=== PATIENT | female | born 1980 | race Caucasian/White ===

== ENCOUNTER → 2023-11-13 11:14 | Outpatient (REF) | payer OTHER, SELFPAY | LOC: DHCBC HW 11:14 | PROVIDERS: ATTENDING PHYSICIAN Internal Medicine Cardiovascular Disease; FAMILY PHYSICIAN Nurse Practitioner | DX: I27.21 Secondary pulmonary arterial hypertension (principal); I27.20 Pulmonary hypertension, unspecified; R06.02 Shortness of breath | CPT/HCPCS: 93306 ==

== ENCOUNTER 2023-11-19 20:24 | Emergency (ER) | payer OTHER, SELFPAY ==
[2023-11-19 20:26] VITALS: BP 115/79
[2023-11-19 20:52] LABS: Hematocrit 35.2 % (37.0-47.0); Hemoglobin 12.5 g/dL (12.0-16.0); Mean Corp Hgb Conc. 35.5 g/dL (33.0-37.0); Mean Corpuscular Hgb 33.4 pg (27.0-31.0); Mean Corpuscular Volume 94.1 fL (81.0-99.0); Mean Platelet Volume 9.5 fL (7.4-10.4); Platelet Count 265 10^3/uL (130-400); Red Blood Cell Count 3.74 10^6/uL (4.20-5.40); Red Cell Dist. Width 12.2 % (11.5-14.5); White Blood Cell Count 5.5 10^3/uL (4.8-10.8)
[2023-11-19 21:11] LABS: COVID-19 Antigen Negative (Negative)
[2023-11-19 21:23] VITALS: BP 102/62
[2023-11-19 21:30] LABS: Blood Urea Nitrogen 15 mg/dl (7-17); Calcium 9.1 mg/dl (8.4-10.2); Carbon Dioxide 22 mmol/L (22-30); Chloride 111 mmol/L (98-107); Glucose 87 mg/dl (70-99); Sodium 138 mmol/L (135-145); eGFR > 60.00
[2023-11-19 22:00] VITALS: BP 111/79
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
== END 2023-11-20 00:15 | disposition home or self-care (01) ==
LOC: EMR 20:24
PROVIDERS: Emergency Medicine; EMERGENCY PHYSICIAN Emergency Medicine; FAMILY PHYSICIAN Nurse Practitioner
DX: S09.90XA Unspecified injury of head, initial encounter (principal); W22.8XXA Striking against or struck by other objects, initial encounter; Z11.52 Encounter for screening for COVID-19; Z87.891 Personal history of nicotine dependence
CPT/HCPCS: 99285; 70450; 80048; 85027; 87502; 87811; 93005

== ENCOUNTER 2024-04-02 19:46 | Emergency (ER) | payer OTHER, SELFPAY ==
[2024-04-02 19:49] VITALS: BP 128/82
[2024-04-02 20:09] LABS: % Basophils 0.6 % (0-2); % Immature Granulocytes 0.2 % (0-0.5); % Lymphocytes 26.6 % (20.5-51.1); % Monocytes 6.1 % (1.7-9.3); % Neutrophils 64.5 % (42.2-75.2); Absolute Eosinophils 0.1 10^3/uL (0-0.7); Absolute Lymphocytes 1.7 10^3/uL (1.2-3.4); Absolute Monocytes 0.4 10^3/uL (0.1-0.6); Absolute Neutrophils 4.1 10^3/uL (1.4-6.5); Hematocrit 35.8 % (37.0-47.0); Hemoglobin 12.9 g/dL (12.0-16.0); Mean Corpuscular Hgb 34.2 pg (27.0-31.0); Mean Platelet Volume 9.3 fL (7.4-10.4); Nucleated Red Blood Cells % 0 %; Platelet Count 257 10^3/uL (130-400); Red Blood Cell Count 3.77 10^6/uL (4.20-5.40); Red Cell Dist. Width 12.3 % (11.5-14.5); White Blood Cell Count 6.4 10^3/uL (4.8-10.8)
[2024-04-02 20:29] LABS: ALT (SGPT) 12 U/L (0-35); AST (SGOT) 21 U/L (14-36); Albumin 4.2 g/dl (3.5-5.0); Alkaline Phosphatase 30 U/L (38-126); Blood Urea Nitrogen 13 mg/dl (7-17); Calcium 9.5 mg/dl (8.4-10.2); Carbon Dioxide 18 mmol/L (22-30); Chloride 111 mmol/L (98-107); Glucose 88 mg/dl (70-99); Potassium 3.5 mmol/L (3.5-5.1); Sodium 139 mmol/L (135-145); Total Bilirubin 0.8 mg/dl (0.2-1.3); Total Protein 6.6 g/dl (6.3-8.2); eGFR > 60.00
[2024-04-02 20:33] VITALS: BMI 27.4
[2024-04-02 20:37] VITALS: BP 98/72
[2024-04-02 21:00] VITALS: BP 114/92
[2024-04-02 22:00] VITALS: BP 119/69
[2024-04-02 23:00] VITALS: BP 101/67
[2024-04-02] MEDS: TYLENOL 650 MG PO (23:58)
[2024-04-02] MEDS: NSS 1000 IV (23:58)
[2024-04-02] MEDS: TORADOL 15 MG IV (23:59)
[2024-04-02] MEDS: BENADRYL 25 MG IV (23:59)
[2024-04-02] MEDS: REGLAN 10 MG IV (23:59)
[2024-04-03 00:04] VITALS: BP 109/85
--- NOTE | 2024-04-03 00:27 | ED.GENMED ---
History of Present Illness
General
Chief Complaint: Fainting/Passed Out
Source: patient and spouse
Exam Limitations: none
Time Seen by Provider: 04/02/24 20:26
Nursing documentation reviewed up to this point in time: agreed with
History of Present Illness
History of Present Illness:
44-year-old female with a past medical history of pulmonary hypertension who presents to the emergency department with her for evaluation after syncopal event also complaining of a headache. Patient reports that she woke up this morning
with a headache and it has been constant throughout the day. She describes a throbbing headache which is unrelenting. She says that in the afternoon she tried to go out and do some chores�she says that she owns chickens and goats and was bending
over changing their hay when she began to feel lightheaded and ultimately passed out. was there with her and says that she had brief loss of consciousness. Fortunately she fell onto a bale of hay and did not sustain any serious injuries.
She discussed with her primary doctor who recommended she come to the emergency room to be assessed. She says she still has headache which has been persistent all day�she says she has a history of migraines which have been similar but has not had
one for years. She does report that she had some flashes of light/floaters in her vision. No photosensitivity. No neck pain or stiffness. No nausea or vomiting. She denies any loss of vision, speech issues, weakness or numbness in her
extremities. Regarding syncopal event: She denies any chest pain, palpitations, shortness of breath associated with the symptoms. She does note that she was recently diagnosed with Lyme disease and started on treatment.
Past History
Past History
ED Past Medical History: GERD and Other (IBS, scleroderma, rheumatoid arthritis, pulmonary hypertension)
ED Past Surgical History: Gynecological
Social History
Tobacco: Former smoker
Drug: None
Personal: Single
Living: with family
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
Family History
Family History: Other
Review of Systems
Review of Systems
All Other Systems: ROS reviewed and negative except as documented in HPI and ROS
Constitutional: Denies fever
Respiratory: Denies trouble breathing
Cardiac: Reports syncope; Denies chest pain or palpitations
ABD/GI: Denies abdominal pain, nausea, vomiting or diarrhea
: Denies flank pain
Musculoskeletal: Denies neck pain or back pain
Neurological: Reports headache; Denies dizzy, weakness or numbness
Phy Exam
Physical Exam
Physical Exam:
General: Awake, alert, oriented x3; no acute distress
Head: Normocephalic, atraumatic
Eyes: Conjunctiva normal, EOMI, pupils equal round and reactive to light bilaterally
Throat: Airway intact, handling secretions
Neck: Trachea midline, supple without meningismus
Lungs: Clear to auscultation bilaterally, no wheezing, rales, rhonchi
Heart: Regular rate and rhythm, no murmurs, gallops, or rubs
Abd: Soft, non distended, nontender
Neuro: Cranial nerves intact, speech fluid, motor and sensory function intact in all extremities
Skin: no rash
Extremities: No edema in extremities, equal pulses in all extremities
Scores
Heart Failure Risk
Heart Failure Risk Score: Not Applicable
Heart Score for Chest Pain Patients
STEMI patient?: Not applicable
Withdrawal Assessment of Alcohol
Withdrawal Assessment Completed?: Not applicable
Course
Orders/Labs/Results
Orders:
Orders
04/02/24 19:57
ECG [Electrocardiogram (*1)] Urgent
Reason for Study: Syncope
Cardiology Consult: Unknown
EKG- Treatment ONCE
04/02/24 20:03
Complete Blood Count/With Diff Urgent
Comprehensive Metabolic Panel Urgent
HCG, Serum Qualitative Screen Urgent
Comment: ADD ON
04/02/24 22:32
CT Head W/o Iv Contrast Urgent
Comment:
Reason For Exam: headache, syncope
04/02/24 23:47
0.9% Sodium Chloride 1000 ml [Nss] 1,000 ml IV BOLUS
Acetaminophen [Tylenol] 650 mg PO NOW STA
Diphenhydramine [Benadryl] 25 mg IV NOW STA
Ketorolac [Toradol] 15 mg IV NOW STA
Metoclopramide [Reglan] 10 mg IV NOW STA
04/03/24 00:32
Add On- LAB Urgent
Tests Added?: hcg
Abnormal Lab Results
04/02/24
20:03
RBC 3.77 L 10^6/uL
(4.20-5.40)
Hct 35.8 L %
(37.0-47.0)
MCH 34.2 H pg
(27.0-31.0)
Chloride 111 H mmol/L
(98-107)
Carbon Dioxide 18 L mmol/L
(22-30)
Alkaline Phosphatase 30 L U/L
(38-126)
04/02/24 20:03
04/02/24 20:03
Vital Signs
Initial and Last Documented VS:
Initial Vital Signs
Temp Pulse Resp BP Pulse Ox
36.7 C 77 20 128/82 96
04/02/24 19:49 04/02/24 19:49 04/02/24 19:49 04/02/24 19:49 04/02/24 19:49
Last Documented Vital Signs
Temp Pulse Resp BP Pulse Ox
36.7 C 67 16 109/85 93
04/02/24 19:49 04/03/24 00:04 04/03/24 00:04 04/03/24 00:04 04/03/24 00:30
MDM/Problems Addressed
Differential Diagnosis Includes:
Headache: Migraine, tension headache, subarachnoid hemorrhage, dehydration
Syncope: Positional/postural syncope, vasovagal, dehydration, anemia; low suspicion for subarachnoid hemorrhage as headache preceded syncope by hours, low suspicion for ectopic with no abdominal pain or tenderness
MDM/Problems Addressed:
44-year-old female presents to the emergency room for evaluation after syncopal episode has also had a headache all day. Vital signs normal. Exam as above. Will check labs including a CBC and a CMP. Check CT head. Check EKG. Will treat
symptomatically with fluids, Reglan/Benadryl, Toradol, Tylenol. Reassess after the above.
Labs reviewed: CBC unremarkable, CMP no clinically significant abnormalities. EKG shows sinus rhythm with first-degree AV block. No ectopy, no [place], no delta wave, no acute ischemic changes. Awaiting results of CT head.
CT head negative for any acute pathology. Patient feeling much better after ED treatment says her headache has improved. Vitals have been stable here on telemetry monitoring. I suspect syncope was likely positional and headache today has been
related to migraine. I had a long discussion with the patient and her who is at the bedside. I explained that my suspicion for subarachnoid hemorrhage is low, especially given that she had headache all day prior to syncope (i.e not
thunderclap) and that she has had similar headaches in the past with migraines. I explained that based on the timeline of presentation she is outside of 6 hours and so the sensitivity of CT without contrast for subarachnoid hemorrhage is a bit
lower. I explained that we cannot with certainty rule this diagnosis out based on the testing we did today but suspicion clinically is very low and certainly negative CT scan here is at least somewhat reassuring. I explained that to definitively
rule out subarachnoid hemorrhage we would need to do further testing and I offered either a CT angiogram or a lumbar puncture. Patient says that she is feeling better and does not feel that these diagnostic tests are necessary at this point and
wishes to go home. I did explain the dangers of potentially missing this diagnosis and she indicated understanding. Using shared decision making we will forego further testing and discharge home. I did advise her that if she has worsening headache
or any other concerning symptoms she should return immediately to the emergency department. She feels very comfortable with this. All questions answered.
*Radiology
Radiology exam reviewed: radiology read reviewed
*Pulse Oximetry
Patient hypoxic: no
*EKG
Interpreted by ED Provider?: Yes
Heart Rate: 64
Rate: normal
Rhythm: sinus
[place]: normal axis
Interval: first degree heart block
QRS Pattern: normal QRS
Ischemia: no ischemia
*Critical Care Note
Total Time (30-74mins, 75-104mins- exclusive of procedures): Not Applicable
Data Reviewed
Review of Other/Old Records Reveals: Labs and Records
Source: patient, records and spouse
Further Testing Considered But Not Given:
Considered CT angiogram or lumbar puncture as above
ED Attending Note
-
Portions of this chart may have been created with voice recognition software.� Occasional wrong word or��sound alike� substitutions may have occurred due to the inherent limitations of voice recognition software.
Discharge Plan
Departure
Patient Disposition: Home (Routine Discharge)
Date of Disposition: 04/03/24
Time of Disposition: 00:56
Patient with high blood pressure during this ER visit?: No
Discharge Problem:
Headache, Syncope
Instructions: Syncope (Fainting) (DC), Headache, Adult ED
Prescriptions:
No Action
oxycodone 5 mg tablet
5 mg PO Q4H PRN (Reason: pain) Qty: 10 0RF
polyethylene glycol 3350 [Gavilax] 17 gram powder in packet
17 g PO DAILY Qty: 30 0RF
Metamucil Free 3 gram/7 gram powder
2 tsp PO DAILY Qty: 822 0RF
oxycodone 5 mg tablet
5 mg PO Q6H PRN (Reason: Pain) Qty: 14 0RF
Referrals:
Lisha Geller CRNP [Family Provider] - Follow up in 1 week
Activity Restrictions/Additional Instructions:
If you feel your headache is worsening or if you begin to feel dizzy again, or certainly if you pass out again, or if you develop any new symptoms that are concerning to you please return immediately to the emergency room for reassessment.
Otherwise you can follow-up with your primary doctor as we discussed.
Thank you for visiting the Emergency Department at [facility].
1. Please schedule a follow up appointment as directed. Call first thing tomorrow morning to make an appointment.
2. If indicated, please take your medications as instructed and indicated on discharge paperwork.
3. If any of your symptoms do not improve, or persist, or become more severe within 6-12 hours, please return to the emergency department for further care.
4. Please return to the emergency department if you develop a headache, neck pain/stiffness, fever greater than 100.4F, chest pain, shortness of breath, persistent nausea, vomiting, slurred speech, difficulty walking, numbness/tingling, weakness,
signs of infection or any other symptoms that are worrisome to you.
Please call [phone] if you have any questions.
Interventions
Interventions:
*Risk Screen - Suicide Last Done: 04/02/24 19:49
*General Assessment Last Done: 04/02/24 19:49
*Neglect/Abuse Screening Last Done: 04/02/24 19:49
ED- Fall Risk Assessment Last Done: 04/02/24 19:49
*ED COVID-19 Vaccine History Last Done: 04/02/24 19:49
ED- Cardiac Assessment Last Done: 04/02/24 20:38
ED- Neurological Assessment Last Done: 04/02/24 20:38
Discharge Date and Time
Print Language: LUX[place]BOURG[place]
[2024-04-03 01:18] LABS: HCG, Serum Qualitative Screen Negative
== END 2024-04-03 01:04 | disposition home or self-care (01) ==
LOC: EMR 19:46
PROVIDERS: Emergency Medicine; EMERGENCY PHYSICIAN Emergency Medicine; FAMILY PHYSICIAN Nurse Practitioner
DX: R51.9 Headache, unspecified (principal); R55 Syncope and collapse; I27.20 Pulmonary hypertension, unspecified; K21.9 Gastro-esophageal reflux disease without esophagitis; K58.9 Irritable bowel syndrome, unspecified; M06.9 Rheumatoid arthritis, unspecified; Z87.891 Personal history of nicotine dependence
CPT/HCPCS: 99284; 96374; 96375; 70450; 80053; 84703; 85025; 93005

== ENCOUNTER 2024-06-27 10:52 | Emergency (ER) | payer OTHER, SELFPAY ==
[2024-06-27 11:01] VITALS: BP 131/73
--- NOTE | 2024-06-27 11:11 | ED.GENMED ---
History of Present Illness
General
Chief Complaint: Breathing Problem
Source: patient
Exam Limitations: none
Time Seen by Provider: 06/27/24 11:06
History of Present Illness
History of Present Illness:
Patient is a 44-year-old female with past medical history scleroderma pulmonary hypertension presents to the ER for evaluation. She started with COVID symptoms yesterday headache body aches cough and tested positive. Today however she became short
of breath which is what prompted her to come to the ER. She initially was diagnosed with pulmonary hypertension by Dr. Salcedo but is followed at [facility]. She is treated with tadalafil and Opsumit.
Past History
Past History
ED Past Medical History: GERD and Other (IBS, scleroderma, rheumatoid arthritis, pulmonary hypertension)
ED Past Surgical History: Gynecological
Social History
Tobacco: Former smoker
Drug: None
Personal: Single
Living: with family
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
Family History
Family History: Other
Review of Systems
Review of Systems
Allergies reviewed?: Yes
All Other Systems: ROS reviewed and negative except as documented in HPI and ROS
Constitutional: Reports no symptoms; Denies fever
Respiratory: Reports cough and trouble breathing
Cardiac: Reports no symptoms
ABD/GI: Reports no symptoms
Musculoskeletal: Reports other (body aches; denies lower extremity swelling)
Skin: Reports no symptoms
Neurological: Reports headache
Psychiatric: Reports no symptoms
Phy Exam
General Physical Exam
General Presentation: no apparent distress
General age: appears stated age
General Skin: warm and dry
General Habitus: normal
General Mental: alert
Cardiovascular Exam
Cardiovascular Exam: regular rate/rhythm, no murmur and normal peripheral pulses
Pulmonary Exam
Pulmonary Exam: lungs clear and no respiratory distress
Neurological Exam
Neurological Exam: alert and oriented x3
Musculoskeletal Exam
Musculoskeletal Exam: full ROM and other (No lower extremity swelling)
Skin Exam
Skin Exam: normal color and warm/dry
Psychiatric Exam
Psychiatric Exam: normal mood/affect
Course
Orders/Labs/Results
Orders:
Orders
06/27/24 11:27
Cardiac Monitoring- Treatment ONCE
IV Insert/Care/Rem.- Treatment PRN
Chest [CR Chest - 2 Views ] Urgent
Comment:
Reason For Exam: sob hx of pulm htn and covid
06/27/24 11:28
Electrocardiogram (*1) Stat
Reason for Study: Abdominal Pain
EKG- Treatment ONCE
06/27/24 12:36
Complete Blood Count/With Diff Urgent
Comprehensive Metabolic Panel Urgent
Abnormal Lab Results
06/27/24
12:36
WBC 3.1 L 10^3/uL
(4.8-10.8)
RBC 3.52 L 10^6/uL
(4.20-5.40)
Hgb 11.9 L g/dL
(12.0-16.0)
Hct 34.0 L %
(37.0-47.0)
MCH 33.8 H pg
(27.0-31.0)
Absolute Lymphs (auto) 0.7 L 10^3/uL
(1.2-3.4)
Monocytes % 11.1 H %
(1.7-9.3)
Chloride 111 H mmol/L
(98-107)
Alkaline Phosphatase 29 L U/L
(38-126)
Total Protein 6.0 L g/dl
(6.3-8.2)
06/27/24 12:36
06/27/24 12:36
Vital Signs
Initial and Last Documented VS:
Initial Vital Signs
Temp Pulse Resp BP Pulse Ox
98 F 55 22 131/73 96
06/27/24 11:01 06/27/24 11:01 06/27/24 11:01 06/27/24 11:01 06/27/24 11:01
Last Documented Vital Signs
Temp Pulse Resp BP Pulse Ox
98 F 56 18 125/78 97
06/27/24 11:01 06/27/24 14:00 06/27/24 14:00 06/27/24 14:00 06/27/24 14:00
Solution Advisor consulted with Physician
Solution Advisor consulted with physician?: Yes
Name of Physician Consulted: wilmer
MDM/Problems Addressed
Differential Diagnosis Includes:
Not limited to COVID, pneumonia
MDM/Problems Addressed:
Patient is a 54-year-old female with history of scleroderma and pulmonary hypertension presents to the ER for evaluation. Patient tested positive for COVID yesterday felt short of breath is what prompted patient to come to the ER.. Patient
presents awake alert no acute distress her lungs are clear she is not she is nontachycardic well-appearing. Symptoms not PE. No acute findings on chest x-ray. No acute findings and EKG unremarkable labs. Patient ambulated and is in remains
looking well. Patient took ibuprofen prior to arrival she complains of mild headache but wants to take Tylenol at home. Case reviewed ED physician stable for discharge home with outpatient follow-up
*Radiology
Radiology exam reviewed: radiology read reviewed
*Pulse Oximetry
Patient hypoxic: no
*EKG
Interpreted by ED Provider?: Yes
Rate: bradycardiac
Rhythm: sinus
Ischemia: no ischemia
*Critical Care Note
Total Time (30-74mins, 75-104mins- exclusive of procedures): Not Applicable
ED Attending Note
-
Portions of this chart may have been created with voice recognition software.� Occasional wrong word or��sound alike� substitutions may have occurred due to the inherent limitations of voice recognition software.
Discharge Plan
Departure
Patient Disposition: Home (Routine Discharge)
Date of Disposition: 06/27/24
Time of Disposition: 14:28
Patient with high blood pressure during this ER visit?: No
Condition: Fair
Covid-19: Not Applicable
Discharge Problem:
COVID-19
Instructions: COVID-19 ED
Prescriptions:
No Action
oxycodone 5 mg tablet
5 mg PO Q4H PRN (Reason: pain) Qty: 10 0RF
polyethylene glycol 3350 [Gavilax] 17 gram powder in packet
17 g PO DAILY Qty: 30 0RF
Metamucil Free 3 gram/7 gram powder
2 tsp PO DAILY Qty: 822 0RF
oxycodone 5 mg tablet
5 mg PO Q6H PRN (Reason: Pain) Qty: 14 0RF
Referrals:
Lisha Geller CRNP [Family Provider] -
Activity Restrictions/Additional Instructions:
As discussed be sure to get plenty of rest and stay well-hydrated .alternate between Tylenol and ibuprofen. Follow-up if worsening of symptoms . Follow-up with your family doctor in the next several days for reevaluation.
Interventions
Interventions:
*Risk Screen - Suicide Last Done: 06/27/24 11:01
*Neglect/Abuse Screening Last Done: 06/27/24 11:01
Discharge Date and Time
Print Language: L[place]
[2024-06-27 12:00] VITALS: BP 94/61
[2024-06-27 13:04] LABS: % Basophils 0.3 % (0-2); % Immature Granulocytes 0.3 % (0-0.5); % Lymphocytes 23.6 % (20.5-51.1); % Monocytes 11.1 % (1.7-9.3); % Neutrophils 63.7 % (42.2-75.2); Absolute Lymphocytes 0.7 10^3/uL (1.2-3.4); Absolute Monocytes 0.4 10^3/uL (0.1-0.6); Hemoglobin 11.9 g/dL (12.0-16.0); Mean Corpuscular Hgb 33.8 pg (27.0-31.0); Mean Corpuscular Volume 96.6 fL (81.0-99.0); Mean Platelet Volume 9.9 fL (7.4-10.4); Nucleated Red Blood Cells % 0 %; Platelet Count 178 10^3/uL (130-400); Red Blood Cell Count 3.52 10^6/uL (4.20-5.40); Red Cell Dist. Width 12.3 % (11.5-14.5); White Blood Cell Count 3.1 10^3/uL (4.8-10.8)
[2024-06-27 13:10] LABS: ALT (SGPT) 15 U/L (0-35); AST (SGOT) 26 U/L (14-36); Albumin 3.7 g/dl (3.5-5.0); Alkaline Phosphatase 29 U/L (38-126); Blood Urea Nitrogen 8 mg/dl (7-17); Calcium 8.8 mg/dl (8.4-10.2); Carbon Dioxide 22 mmol/L (22-30); Chloride 111 mmol/L (98-107); Glucose 94 mg/dl (70-99); Potassium 4.4 mmol/L (3.5-5.1); Sodium 140 mmol/L (135-145); Total Bilirubin 0.2 mg/dl (0.2-1.3); eGFR > 60.00
[2024-06-27 14:00] VITALS: BP 125/78
[2024-06-27 14:35] VITALS: BP 143/77
== END 2024-06-27 14:35 | disposition home or self-care (01) ==
LOC: EMR 10:52
PROVIDERS: Nurse Practitioner; EMERGENCY PHYSICIAN Emergency Medicine; FAMILY PHYSICIAN Nurse Practitioner
DX: U07.1 COVID-19 (principal); Z87.891 Personal history of nicotine dependence; I27.20 Pulmonary hypertension, unspecified
CPT/HCPCS: 99285; 71046; 80053; 85025; 93005

== ENCOUNTER 2025-03-23 03:30 | Day surgery (SDC) | payer OTHER, SELFPAY ==
[2025-03-22 18:59] VITALS: BP 138/73
[2025-03-22 19:20] LABS: Hematocrit 38.8 % (37.0-47.0); Hemoglobin 13.5 g/dL (12.0-16.0); Mean Corp Hgb Conc. 34.8 g/dL (33.0-37.0); Mean Corpuscular Volume 96.5 fL (81.0-99.0); Nucleated Red Blood Cells % 0 %; Platelet Count 231 10^3/uL (130-400); Red Cell Dist. Width 12.9 % (11.5-14.5)
[2025-03-22 19:37] LABS: HCG, Serum Qualitative Screen Negative
[2025-03-22 19:38] LABS: ALT (SGPT) 14 U/L (0-35); AST (SGOT) 25 U/L (14-36); Albumin 4.2 g/dl (3.5-5.0); Alkaline Phosphatase 26 U/L (38-126); Blood Urea Nitrogen 14 mg/dl (7-17); Calcium 9.4 mg/dl (8.4-10.2); Carbon Dioxide 22 mmol/L (22-30); Chloride 111 mmol/L (98-107); Glucose 104 mg/dl (70-99); Lipase 139 U/L (23-300); Potassium 4.4 mmol/L (3.5-5.1); Sodium 137 mmol/L (135-145); Total Protein 6.9 g/dl (6.3-8.2); eGFR > 60.00
[2025-03-22 19:48] LABS: Troponin I < 0.012 ng/ml
[2025-03-22 21:29] VITALS: BP 142/77
[2025-03-22 22:00] VITALS: BP 122/73
[2025-03-22 22:04] VITALS: BMI 26.2
[2025-03-22 22:06] VITALS: BP 122/73
[2025-03-22] MEDS: TORADOL 15 MG IV (22:44)
[2025-03-22] MEDS: ZOFRAN 4 MG IV (22:46)
--- NOTE | 2025-03-22 23:10 | ED.GENMED ---
History of Present Illness
General
Chief Complaint: Abdominal Pain
Time Seen by Provider: 03/22/25 21:58
History of Present Illness
History of Present Illness:
45-year-old female with history of scleroderma presenting for upper abdominal pain. Patient report that she woke up with the symptoms this morning. She has had nausea without vomiting. Does note episode of diarrhea. Pain is concentrated to the
right upper quad. Does note issues with her gallbladder in , however never required removal. Pain radiates to her back and to her chest. Notes fever without chills. Denies additional acute medical complaint
Past History
Past History
ED Past Medical History: GERD and Other (IBS, scleroderma, rheumatoid arthritis, pulmonary hypertension)
ED Past Surgical History: Gynecological
Social History
Tobacco: Former smoker
Drug: None
Personal: Single
Living: with family
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
Family History
Family History: Other
Phy Exam
Physical Exam
Physical Exam:
General: Well-appearing, no clinical signs of dehydration, nontoxic and in no acute distress
HEENT: protecting airway
Neck: appears supple
CV: Normal heart rate, regular rhythm
Resp: No accessory muscle use, no increased work of breathing, lungs clear to auscultation bilaterally
Abd: Soft and non-distended, focal right upper quadrant tenderness with guarding, no rebound
Extremities: No deformities, no swelling
Neuro: alert, no focal neurologic deficit
: deferred
Rectal: deferred
Psych: Normal affect
Skin: Intact
Course
Orders/Labs/Results
Orders:
Orders
03/22/25 19:03
Electrocardiogram (*1) Urgent
Reason for Study: Chest Pain
03/22/25 19:04
EKG- Treatment ONCE
Test Result ONCE
03/22/25 19:14
Complete Blood Count/With Diff Urgent
Comprehensive Metabolic Panel Urgent
HCG, Serum Qualitative Screen Urgent
Lipase Urgent
Troponin I Urgent
03/22/25 22:36
Ketorolac [Toradol] 15 mg IV NOW STA
Ondansetron Injectable [Zofran] 4 mg IV NOW STA
US Abdomen Complete/Upper Urgent
Comment:
Reason For Exam: suspect cholecystitis
03/23/25 00:08
CT Abd/pelvis W Iv Cont Urgent
Comment:
Reason For Exam: upper abd pain
03/23/25 00:13
Morphine Sulfate 4 mg IV NOW STA
03/23/25 00:16
0.9% Sodium Chloride 1000 ml [Nss] 1,000 ml IV BOLUS
Abnormal Lab Results
03/22/25
19:14
RBC 4.02 L 10^6/uL
(4.20-5.40)
MCH 33.6 H pg
(27.0-31.0)
Absolute Lymphs (auto) 0.7 L 10^3/uL
(1.2-3.4)
Neutrophils % 77.8 H %
(42.2-75.2)
Lymphocytes % 13.8 L %
(20.5-51.1)
Chloride 111 H mmol/L
(98-107)
Glucose 104 H mg/dl
(70-99)
Total Bilirubin 1.5 H mg/dl
(0.2-1.3)
Alkaline Phosphatase 26 L U/L
(38-126)
03/22/25 19:14
03/22/25 19:14
Vital Signs
Initial and Last Documented VS:
Initial Vital Signs
Temp Pulse Resp BP Pulse Ox
98.2 F 67 18 138/73 95
03/22/25 18:59 03/22/25 18:59 03/22/25 18:59 03/22/25 18:59 03/22/25 18:59
Last Documented Vital Signs
Temp Pulse Resp BP Pulse Ox
98.2 F 52 16 110/69 93
03/22/25 18:59 03/23/25 02:30 03/23/25 02:30 03/23/25 02:00 03/23/25 02:30
MDM/Problems Addressed
MDM/Problems Addressed:
45-year-old female presenting for right upper quadrant abdominal pain. Vital signs on arrival are normal.
On exam, patient is in no acute distress, however does appear uncomfortable secondary to pain. Focal tenderness to the right upper quadrant with a strong suspicion for cholelithiasis versus cholecystitis, particularly given history of gallbladder
issues in the past. For this reason will obtain laboratory analysis and start workup with ultrasound imaging.
00:05 - Ultrasound without acute abnormality. Given patient's pain, we will proceed with CT imaging
02:50 -CT shows concern for uncomplicated appendicitis. Surgery made aware. Plan for admission with surgical management. Zosyn ordered for antibiotic coverage, per surgery recommendations.
*Pulse Oximetry
SaO2: 96
Oxygen Mode of Delivery: Room air
Patient hypoxic: no
*EKG
Interpreted by ED Provider?: Yes
EKG Intrepretation Date: 03/22/25
EKG Intrepretation Time: 23:12
Interpretation: normal
Heart Rate: 60
Rate: normal
Rhythm: sinus
[place]: right axis deviation
Interval: normal interval
QRS Pattern: normal QRS
Ischemia: no ischemia
*Critical Care Note
Total Time (30-74mins, 75-104mins- exclusive of procedures): Not Applicable
ED Attending Note
-
Portions of this chart may have been created with voice recognition software.� Occasional wrong word or��sound alike� substitutions may have occurred due to the inherent limitations of voice recognition software.
Discharge Plan
Departure
Prescriptions:
No Action
oxycodone 5 mg tablet
5 mg PO Q4H PRN (Reason: pain) Qty: 10 0RF
polyethylene glycol 3350 [Gavilax] 17 gram powder in packet
17 g PO DAILY Qty: 30 0RF
Metamucil Free (with sugar) 3 gram/7 gram powder
2 tsp PO DAILY Qty: 822 0RF
oxycodone 5 mg tablet
5 mg PO Q6H PRN (Reason: Pain) Qty: 14 0RF
Referrals:
Lisha Geller CRNP [Family Provider, Family Practice]
Interventions
Interventions:
*Risk Screen - Suicide Last Done: 03/22/25 18:59
*General Assessment Last Done: 03/22/25 18:59
*Neglect/Abuse Screening Last Done: 03/22/25 18:59
*ED- Fall Risk Assessment Last Done: 03/22/25 22:05
*ED COVID-19 Vaccine History Last Done: 03/22/25 22:05
YL-Vxqxgq-Ytckwspdrq Assessment Last Done: 03/22/25 22:07
Discharge Date and Time
Print Language: SOUTH SUDANESE
[2025-03-22 23:25] VITALS: BP 105/52
[2025-03-23] VITALS (18 sets, daily range): BP systolic 97–119; BP diastolic 55–99; BMI 26.3
[2025-03-23] MEDS: NSS 1000 IV (00:19)
[2025-03-23] MEDS: MORPHINE SULFATE 4 MG IV ×4 (00:20→09:18)
[2025-03-23] MEDS: ZOSYN 100 IV (03:10)
[2025-03-23] MEDS: FLUSH (NSS) 1 FLUSH IV (03:37)
--- NOTE | 2025-03-23 04:03 | HPS.HSE ---
Addendum entered and electronically signed by Ronn Foley MD 03/23/25 07:53:
Patient is a 45 yo F with a PMH scleroderma c/b pulmonary HTN, endometriosis s/p laparoscopic excision, and s/p tubal ligation who presents with abdominal discomfort. Currently she states that her abdominal discomfort is mostly in her lower
abdomen, though she states that her symptoms began as upper abdominal discomfort beginning yesterday. Prior to this she states that she w yeah as doing well. She does have intermittent episodes of discomfort and fullness sensation at baseline.
Associated chills and severe nausea, but no episodes of vomiting or fevers. She does report looser nonbloody stools. No clear association with fatty food intake. She denies any jaundice or dark urine. Ultrasound of the abdomen was ordered for
concern of possible cholecystitis which was read as normal. Because of that a CT scan was obtained which demonstrated mild acute appendicitis without any perforation or abscess formation.
Gen: NAD, uncomfortable
Abd: soft, tender in upper mid abdomen and RLQ, mild distension, no rebound, voluntary guarding
Labs and CT scan were reviewed. Final read on CT scan and US pending.
Patient is a 45 yo F p/w likely acute appendicitis
Clinical presentation is somewhat unusual given her upper abdominal discomfort, however, her symptoms are localizing to the past 12 hours to the RLQ. Her CT scan does demonstrate a dilated and mildly inflamed appendix without perforation or abscess
formation. Final read from Radiology on above-noted imaging pending.
The natural history and pathophysiology of appendicitis was discussed. Anatomy was reviewed. Options for management including medical management with antibiotics versus surgical management with appendectomy were considered and discussed. Pros and
cons of both approaches was discussed. Specifically, we discussed failure of medical management and future episodes of appendicitis versus surgical risks.
Plan for a laparoscopic appendectomy. The procedure itself, as well as the risks, benefits, and alternatives was discussed. Specifically, we discussed the risks of bleeding, infection, injury to surrounding structures (bowel), staple line leak,
and need for open procedure. Typical postprocedural recovery including pain management and activity restrictions were discussed. All questions answered. Consent signed.
-- Laparoscopic appendectomy
-- NPO, IVF
-- Abx: Zosyn
-- Pain control: Tylenol and IV Morphine
Original Note:
Family Physician
-
Family Physician: Lisha Geller
Chief Complaint
-
abd pain
History of Present Illness
45-year-old female with history of scleroderma, pulmonary HTN (on opsumit) presenting for upper abdominal pain. Patient reports that she woke up with the symptoms this morning. Initially started with diarrhea and then pain started in ruq with
bloating. She did feel like stool was foul smelling. She has had nausea without vomiting. Pain is concentrated to the right upper quad. Does note issues with her gallbladder in , however never required removal. Pain radiates to her back
and to her chest. With increased pain she has trouble taking deep breaths. Notes chills. Denies additional acute medical complaint
Based on symptomology, pt was ordered abd Us for concern of acute cholecystitis, but that proved to be normal. Decision then made to get ct abd.
CT abd: consistent with acute uncomplicated acute appendicitis. Dilated appendix up to 12mm.
WBC normal Neutrophils 77.8
Received zosyn, toradol and morphine in ED- which helped pain
Medical History
Past Medical History
Past Medical History: Reports Other (scleroderma, pulmonary HTN (2020), endometriosis)
Past Surgical History: Reports Cardiac (many RHC over the years), Gynocological (multiple surgeries for endometriosis) and Other (wisdom teeth)
Social History
Tobacco: Non-smoker
Alcohol: Occasional
Drug: None
Personal:
Living: With Family
Family History
Family History: Not pertinent
Allergies / Home Medications
Allergies reflects when Allergies were last updated in [facility].
Home Medications with original date entered in [facility]
Allergy/Medication List:
Allergies
Allergy/AdvReac Type Severity Reaction Status Date / Time
propoxyphene HCl (From Allergy Anaphylaxis Verified 03/22/25 22:04
[place])
Home Medications
opsumt 10mg po daily (pulmonary HTN)
Review of Systems
-
History Source: Patient
A 12 point ROS was completed and negative except as noted: Yes
Constitutional: Reports See HPI and Chills
EENT: Reports No Symptoms
Respiratory: Reports Trouble Breathing (trouble taking full breaths when pain severe)
Cardiac: Reports No Symptoms
Abdomen/GI: Reports Abdominal Pain (RUQ pain mostly. And lower abd feels crampy), Nausea, Diarrhea (yesterday morning), Pain and Other (bloating)
: Reports No Symptoms
Musculoskeletal: Reports No Symptoms
Skin: Reports No Symptoms
Neurological: Reports No Symptoms
Endocrine: Reports No Symptoms
Hematologic/Lymphatic: Reports No Symptoms
Psych: Reports No Symptoms
Physical Exam
Vital Signs
Vital Signs
Temp Pulse Resp BP Pulse Ox
98.2 F 54 13 119/75 96
03/22/25 18:59 03/23/25 04:00 03/23/25 04:00 03/23/25 03:00 03/23/25 04:00
Physical Exam
General: Well Developed, Well Nourished, Appears in Distress and Pain
HEENT: NormoCephalic, Anicteric and Moist mucous membranes
Respiratory: Clear
Cardiac: S1/S2 and Regular Rhythm
Breast: Deferred by me
GI: Soft, Normal Bowel Sounds, Tender (low abd tenderness and RUQ tenderness) and Distended (softly distended); No Non Tender or Non Distended
Rectal: Deferred by Provider
Genito-urinary: Deferred by me
Musculoskeletal: No Clubbing and No Cyanosis
Skin: Warm and Dry
Neuro: Awake, Oriented, AO x 3 and No Motor Deficits
Hematologic/Lymphatic: No Lymphadenopathy
Psych: Calm
Laboratory Results
-
03/22/25 19:14
03/22/25 19:14
Laboratory Results
Total Bilirubin 1.5 mg/dl (0.2-1.3) H 03/22/25 19:14
AST 25 U/L (14-36) 03/22/25 19:14
ALT 14 U/L (0-35) 03/22/25 19:14
Alkaline Phosphatase 26 U/L (38-126) L 03/22/25 19:14
Troponin I < 0.012 ng/ml 03/22/25 19:14
Lipase 139 U/L (23-300) 03/22/25 19:14
Data Reviewed
-
CT Scan: Report Reviewed by me and Discussed with Physician
Ultrasound: Report Reviewed by me and Discussed with Physician
Lab Data: Labs Reviewed by me
Impression/Plan
-
IMPRESSION:
acute uncomplicated appendicitis
PLAN:
Admit to service of Dr Foley
med surg obs
#acute uncomplicated appendicitis
-NPO x meds
-IVF for gentle hydration
-Pain control: tylenol, toradol, morphine prn
-cont zosyn
-zofran prn
-start Incentive fidel
#pulmonary HTN
-cont Opsumit (may need to bring from home if non-formulary)
DVT proph: scd
Discussed with at bedside
Full code
--- NOTE | 2025-03-23 04:40 | EDRN ---
Patient taken to room 2120 on stretcher by organic section technical lead.
[2025-03-23] MEDS: NORMOSOL-R/PLASMALYTE-A 1000 IV (04:57)
--- NOTE | 2025-03-23 05:44 | TRANSFER ---
Received pt from ED at 0433 dx of uncomplicated acute appendicitis, pt reported pain 4/10 to RUQ - received morphine about an hour before arriving. Discussed plans w pt, all questions answered. Pt's mother arrived at bedside -0515. Call kiran within
reach, bed in lowest position. Care ongoing.
[2025-03-23 06:10] LABS: Hematocrit 38.3 % (37.0-47.0); Hemoglobin 13.2 g/dL (12.0-16.0); Mean Corp Hgb Conc. 34.5 g/dL (33.0-37.0); Mean Corpuscular Volume 97.2 fL (81.0-99.0); Nucleated Red Blood Cells % 0 %; Platelet Count 233 10^3/uL (130-400); Red Cell Dist. Width 12.9 % (11.5-14.5)
[2025-03-23 06:36] LABS: ALT (SGPT) 14 U/L (0-35); AST (SGOT) 24 U/L (14-36); Albumin 4.3 g/dl (3.5-5.0); Alkaline Phosphatase 25 U/L (38-126); Blood Urea Nitrogen 11 mg/dl (7-17); Calcium 8.7 mg/dl (8.4-10.2); Carbon Dioxide 19 mmol/L (22-30); Chloride 111 mmol/L (98-107); Estimated Creatinine Clearance 71 ml/min; Glucose 93 mg/dl (70-99); Potassium 4.0 mmol/L (3.5-5.1); Sodium 139 mmol/L (135-145); Total Protein 7.0 g/dl (6.3-8.2); eGFR > 60.00
[2025-03-23] MEDS: ZOSYN 50 IV (08:55)
--- NOTE | 2025-03-23 09:41 | W.SUR.PREOP ---
Pre-Operative Surgical Note
-
I have examined this patient prior to the performance of the scheduled procedure.
The patient's condition is unchanged from the time of the current History and
Physical and the patient is able to undergo the scheduled procedure.
--- NOTE | 2025-03-23 11:07 | W.IMMPOSTOP ---
Surgical Immed Post Op Note
-
Primary Surgeon: Og
Assisting Surgeon: None
Pre-op Diagnosis: Acute appendicitis
Post-op Diagnosis: Acute appendicitis
Procedure Performed: Laparoscopic appendectomy
Anesthesia Type: General
Specimen / Cultures:
1. Appendix
Estimated Blood Loss: 3 cc
Complications: None
Operative Findings:
1. Acutely inflamed and dilated appendix, no evidence of perforation
2. Mesentery taken with [employer], base with webb load stapler
[2025-03-23] MEDS: SUBLIMAZE 50 MCG IV (11:30)
--- NOTE | 2025-03-23 13:33 | PTCARENOTE ---
Pt arrived to [facility] from PACU at 1200 s/p lap appy. 3 lap sites and 1 poke site [facility] with glue. Pt on 1L of O2 at 99%. Pt oriented to room and call kiran. Bed locked and in lowest position. Care ongoing.
[2025-03-23] MEDS: ROXICODONE 5 MG PO ×3 (13:50→23:27)
--- NOTE | 2025-03-23 14:56 | CM ---
Reviewed the chart notes and spoke with the patient and family at the bedside. Patient resides with significant other in a two story home with 10 steps to enter. The patient reports no DME or SNF in the past, but briefly had VN after of son.
The patient confirmed her pharmacy of choice is [facility] [address] [place]. CM continues to be available to patient/family and is monitoring medical plan for needs at discharge.
Plan: Discharge to home when medically stable. No needs anticipated.
[2025-03-23] MEDS: LOVENOX 40 MG SC (18:31)
[2025-03-23] MEDS: NON-FORMULARY ITEM 1 TABLET PO (20:14)
[2025-03-23] MEDS: NORMOSOL-R/PLASMALYTE-A IV (22:27)
[2025-03-24 03:18] VITALS: BP 90/54
[2025-03-24] MEDS: ROXICODONE 5 MG PO ×2 (06:29→10:46)
[2025-03-24 07:40] VITALS: BP 115/73
[2025-03-24] MEDS: TORADOL 10 MG IV (08:35)
[2025-03-24] MEDS: TYLENOL 650 MG PO (08:36)
--- NOTE | 2025-03-24 08:46 | W.PN.GS2 ---
Today's Communication / Plan
-
-- DC
Assessment / Plan
-
Patient is a 45 yo F POD#1 s/p laparoscopic appendectomy
AVSS
Recovering well. No postoperative concerns.
-- Regular diet
-- Pain control: Tylenol, Toradol, Oxycodone
-- HLIV
-- Home meds
-- DVT: Lovenox
-- DC
Subjective Data
-
Date of Service: March 24, 2025
Pain overall well-controlled. Continues to report some RUQ discomfort. No fevers or chills. No nausea or vomiting. Passing flatus.
Objective Data
-
Intake and Output
03/23/25 03/24/25 03/25/25
06:59 06:59 06:59
Intake Total 1240 / 1240 480 / 480
Balance 1240 / 1240 480 / 480
Intake:
Oral fluids 960 / 960 480 / 480
IV fluids (Total) 280 / 280
Other:
Number of approximated MODERATE 2
amounts of urine
Vital Signs
Temp Pulse Resp BP Pulse Ox
97.9 F 55 14 115/73 96
03/24/25 07:40 03/24/25 07:40 03/24/25 07:40 03/24/25 07:40 03/24/25 07:40
Lab Results
03/23/25 05:17
03/23/25 05:17
Calcium 8.7 mg/dl (8.4-10.2) 03/23/25 05:17
Total Bilirubin 1.6 mg/dl (0.2-1.3) H 03/23/25 05:17
AST 24 U/L (14-36) 03/23/25 05:17
ALT 14 U/L (0-35) 03/23/25 05:17
Alkaline Phosphatase 25 U/L (38-126) L 03/23/25 05:17
Total Protein 7.0 g/dl (6.3-8.2) 03/23/25 05:17
Albumin 4.3 g/dl (3.5-5.0) 03/23/25 05:17
Physical Exam
-
Gen: NAD
Abd: soft, mild tenderness, ND, non-peritoneal, incisions c/d/i - no erythema, ecchyomosis or drainage
Patient has a mcclendon catheter: No
Patient has a central line: No
[2025-03-24] MEDS: ZOFRAN 4 MG IV (09:43)
[2025-03-24] MEDS: NORMOSOL-R/PLASMALYTE-A IV (10:46)
[2025-03-24 11:00] VITALS: BP 102/65
== END 2025-03-24 11:48 | disposition home or self-care (01) ==
LOC: PACU 03:30
PROVIDERS: Nurse Practitioner Family; Student in an Organized Health Care Education/Training Program; ATTENDING PHYSICIAN Surgery; EMERGENCY PHYSICIAN Student in an Organized Health Care Education/Training Program; FAMILY PHYSICIAN Nurse Practitioner
DX: K35.80 Unspecified acute appendicitis (principal)
CPT/HCPCS: 44970; 88304; 74177; 76700; 80053; 83690; 84484; 84703; 85025; 93005; 96361; 96365; 96375; 99285; C1776; G0378; Q9967

== ENCOUNTER 2025-04-15 08:15 | Inpatient (IN) | payer OTHER, SELFPAY ==
[2025-04-11 21:17] VITALS: BP 116/99
[2025-04-11 21:42] LABS: Hematocrit 36.5 % (37.0-47.0); Hemoglobin 13.2 g/dL (12.0-16.0); Mean Corp Hgb Conc. 36.2 g/dL (33.0-37.0); Mean Corpuscular Volume 94.6 fL (81.0-99.0); Nucleated Red Blood Cells % 0 %; Platelet Count 276 10^3/uL (130-400); Red Cell Dist. Width 13.2 % (11.5-14.5)
[2025-04-11 21:55] LABS: HCG, Serum Qualitative Screen Negative
[2025-04-11 21:58] LABS: ALT (SGPT) < 10 U/L (0-35); AST (SGOT) 21 U/L (14-36); Albumin 4.4 g/dl (3.5-5.0); Alkaline Phosphatase 23 U/L (38-126); Blood Urea Nitrogen 8 mg/dl (7-17); Calcium 9.2 mg/dl (8.4-10.2); Carbon Dioxide 19 mmol/L (22-30); Chloride 110 mmol/L (98-107); Glucose 97 mg/dl (70-99); Lipase 206 U/L (23-300); Potassium 4.0 mmol/L (3.5-5.1); Sodium 139 mmol/L (135-145); Total Protein 7.0 g/dl (6.3-8.2); eGFR > 60.00
[2025-04-11 22:06] LABS: Troponin I < 0.012 ng/ml
--- NOTE | 2025-04-11 22:08 | ED.GENMED ---
History of Present Illness
<Iwona Shah NP - Last Filed: 04/14/25 16:23>
General
Chief Complaint: Abdominal Pain
Source: patient
Exam Limitations: none
Time Seen by Provider: 04/11/25 22:10
Nursing documentation reviewed up to this point in time: agreed with
History of Present Illness
History of Present Illness:
Patient to ED with complaint of upper abd. pain. Pain started suddenly tonight. SHe is 2 weeks post appendectomy. No issues until tonight. Denies fever/chills, n/v/d. Brought to eD by family for eval,
Past History
<Iwona Shah NP - Last Filed: 04/14/25 16:23>
Past History
ED Past Medical History: GERD and Other (IBS, scleroderma, rheumatoid arthritis, pulmonary hypertension)
ED Past Surgical History: Gynecological
Social History
Tobacco: Former smoker
Drug: None
Personal: Single
Living: with family
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
Family History
Family History: Other
Review of Systems
<Iwona Shah NP - Last Filed: 04/14/25 16:23>
Review of Systems
Allergies reviewed?: Yes
All Other Systems: ROS reviewed and negative except as documented in HPI and ROS
Constitutional: Reports no symptoms
EENT: Reports no symptoms
Respiratory: Reports no symptoms
Cardiac: Reports no symptoms
ABD/GI: Reports abdominal pain
: Reports no symptoms
Musculoskeletal: Reports no symptoms
Skin: Reports no symptoms
Neurological: Reports no symptoms
Psychiatric: Reports no symptoms
Phy Exam
<Iwona Shah NP - Last Filed: 04/14/25 16:23>
General Physical Exam
General Presentation: moderate distress
General age: appears stated age
General Skin: warm and dry
General Habitus: normal
Cardiovascular Exam
Cardiovascular Exam: regular rate/rhythm and no edema
Pulmonary Exam
Pulmonary Exam: lungs clear and no respiratory distress
Gastrointestinal Exam
Gastrointestinal Exam: soft, no organomegaly, no pulsatile mass and non distended
Palpation: left upper quadrant: Moderate tenderness, left lower quadrant: Minimal tenderness, right upper quadrant: Moderate tenderness and right lower quadrant: Minimal tenderness
Musculoskeletal Exam
Musculoskeletal Exam: full ROM
Skin Exam
Skin Exam: normal color, warm/dry and no rash
Psychiatric Exam
Psychiatric Exam: normal mood/affect
Course
<Iwona Shah DRUM HAND[employer]ER - Last Filed: 04/14/25 16:23>
Orders/Labs/Results
Orders:
Orders
04/11/25 21:19
Electrocardiogram (*1) Urgent
Reason for Study: Abdominal Pain
EKG- Treatment ONCE
04/11/25 21:20
Test Result ONCE
04/11/25 21:30
Complete Blood Count/With Diff Urgent
Comprehensive Metabolic Panel Urgent
HCG, Serum Qualitative Screen Urgent
Lipase Urgent
Troponin I Urgent
04/11/25 22:11
HYDROmorphone [Dilaudid] 0.5 mg IV NOW STA
Ondansetron Injectable [Zofran] 4 mg IV NOW STA
04/11/25 22:12
0.9% Sodium Chloride 1000 ml [Nss] 1,000 ml IV BOLUS
HYDROmorphone [Dilaudid] 0.5 mg .ROUTE .STK-MED ONE
Ondansetron Injectable [Zofran] 4 mg .ROUTE .STK-MED ONE
04/11/25 22:32
CT Abd/pelvis W Iv Cont Urgent
Comment:
Reason For Exam: abdominal pain s/p appendectomy
04/11/25 22:54
Urinalysis Reflex To Culture Urgent
Date Specimen was Collected: 04/11/25
Time Specimen was Collected: 22:48
04/12/25 00:23
HYDROmorphone [Dilaudid] 0.5 mg IV NOW STA
04/12/25 00:30
Mag Hydrox/Al Hydrox/Simeth [Maalox] 30 ml Phenobarb/Hyoscy/Atropine/Scop [] 10 ml Viscous Lidocaine 2% [Xylocaine Viscous Cup] 10 ml PO NOW
Pantoprazole [Protonix IV] 40 mg IV NOW STA
04/12/25 00:41
Mag Hydrox/Al Hydrox/Simeth [Maalox] 30 ml .ROUTE .STK-MED ONE
Phenobarb/Hyoscy/Atropine/Scop [] 10 ml .ROUTE .STK-MED ONE
04/12/25 00:42
Viscous Lidocaine 2% [Xylocaine Viscous Cup] 15 ml .ROUTE .STK-MED ONE
04/12/25 00:48
US Abdomen Limited Urgent
Comment:
Reason For Exam: RUQ pain
04/12/25 00:50
D-Dimer Urgent
04/12/25 01:59
Sucralfate [Carafate] 1 gram PO NOW STA
04/12/25 04:49
HYDROmorphone [Dilaudid] 0.5 mg .ROUTE .STK-MED ONE
Ondansetron Injectable [Zofran] 4 mg .ROUTE .STK-MED ONE
04/12/25 04:50
Ondansetron Injectable [Zofran] 4 mg IV NOW STA
04/12/25 04:51
HYDROmorphone [Dilaudid] 0.5 mg IV NOW STA
04/12/25 05:11
CT Chest Angio W/wo Iv Contras Stat
Comment:
Reason For Exam: syncope chest pain, eval dissection, central pe
04/12/25 05:17
Admit/Transfer Patient As Directed
Co-Sign Provider:
Level of Care: Observation services
Assign to:: Telemetry
Physician / Group: [facility]
Diagnosis: syncope, abdominal pain
Reason for Telemetry: Syncope
Date to Stop Telemetry: 04/14/25
Time to Stop Telemetry: 11:00
PRN Pain Medication Management As Directed
May give lesser potent ordered pain med per pt: Yes
preference::
Protocol:: Medication orders for pain may be administered in a
manner that supports deferring to patient preference
when the pt is:
- Requesting an ordered lesser potent pain medication.
Least to most potent pain medications are defined
as: acetaminophen < NSAID < tramadol < opioids
(morphine, oxycodone, hydromorphone).
- Requesting a lesser dose of the same medication IF
ORDERED.
- Requesting a less intrusive route of administration
if both routes are prescribed by the provider (PO <
IV).
04/12/25 05:18
Code Status As Directed
Resuscitation Status: Full Code
04/12/25 07:04
Electrocardiogram (*1) Q6H
Reason for Study: Chest Pain
Comment: at admission and Q3H for total of 3, to be done with each troponin
Acetaminophen [Tylenol] 650 mg PO Q4HPRN PRN
Dextrose 5%/0.45%Sodchl 1000ML [D5/0.45%NaCl] 1,000 ml IV 80 mls/hr
Mag/Al/Simethicone [Maalox Plus] 1 tablet PO Q4HPRN PRN
Oxycodone [Roxicodone] 5 mg PO Q4HPRN PRN
04/12/25 07:04
Echo 2D MMode Color/Doppler Routine
Reason for Study: syncope
Activity As Directed
Activity Level: With Assistance
INT (Intravenous Needle Therapy) As Directed
Comment: maintain peripheral IV access
Intake/ Output As Directed
Frequency: Per unit guidelines
Orthostatic Vital Signs As Directed
Orthostatic VS Frequency: Daily
Pneumatic Compression Sleeves As Directed
Type: Knee high
Vital Signs As Directed
Frequency: q4h
Weight As Directed
Frequency: Once
Pulse Ox/spot Check [RESP] Routine
Quantity: 1
Special Instructions: on admission and then every shift if on oxygen
DX Deep Vein Thrombosis Video Routine
04/12/25 08:00
Famotidine [Pepcid] 20 mg IV Q12
04/12/25 08:55
Troponin I Q3H
Comment: at admit & Q3H for 3 total including ED draws, obtain ECG with each level
04/12/25 09:00
HYDROmorphone [Dilaudid] 0.5 mg IV Q4HPRN PRN
04/12/25 10:32
Troponin I Q3H
Comment: at admit & Q3H for 3 total including ED draws, obtain ECG with each level
04/12/25 11:00
Ondansetron Injectable [Zofran] 4 mg IV Q6HPRN PRN
04/12/25 22:00
macitentan-tadalafil [Opsynvi] See Dose Instructions PO HS
04/13/25 05:05
Complete Blood Count/No Diff IN AM
04/14/25 11:00
DC Protocol for Telemetry ONCE
Abnormal Lab Results
04/11/25
21:30
RBC 3.86 L 10^6/uL
(4.20-5.40)
Hct 36.5 L %
(37.0-47.0)
MCH 34.2 H pg
(27.0-31.0)
Neutrophils % 40.4 L %
(42.2-75.2)
Chloride 110 H mmol/L
(98-107)
Carbon Dioxide 19 L mmol/L
(22-30)
Creatinine 1.1 H mg/dL
(0.6-1.0)
Alkaline Phosphatase 23 L U/L
(38-126)
04/11/25 21:30
04/11/25 21:56
Vital Signs
Initial and Last Documented VS:
Initial Vital Signs
Temp Pulse Resp BP Pulse Ox
98.2 F 94 20 116/99 95
04/11/25 21:17 04/11/25 21:17 04/11/25 21:17 04/11/25 21:17 04/11/25 21:17
Last Documented Vital Signs
Temp Pulse Resp BP Pulse Ox
97.8 F 59 16 105/56 94
04/14/25 15:52 04/14/25 15:52 04/14/25 15:52 04/14/25 15:52 04/14/25 15:52
<Alisia Fierro PA-C - Last Filed: 04/12/25 03:55>
Orders/Labs/Results
Orders:
Orders
04/11/25 21:19
Electrocardiogram (*1) Urgent
Reason for Study: Abdominal Pain
EKG- Treatment ONCE
04/11/25 21:20
Test Result ONCE
04/11/25 21:30
Complete Blood Count/With Diff Urgent
Comprehensive Metabolic Panel Urgent
HCG, Serum Qualitative Screen Urgent
Lipase Urgent
Troponin I Urgent
04/11/25 22:11
HYDROmorphone [Dilaudid] 0.5 mg IV NOW STA
Ondansetron Injectable [Zofran] 4 mg IV NOW STA
04/11/25 22:12
0.9% Sodium Chloride 1000 ml [Nss] 1,000 ml IV BOLUS
HYDROmorphone [Dilaudid] 0.5 mg .ROUTE .STK-MED ONE
Ondansetron Injectable [Zofran] 4 mg .ROUTE .STK-MED ONE
04/11/25 22:32
CT Abd/pelvis W Iv Cont Urgent
Comment:
Reason For Exam: abdominal pain s/p appendectomy
04/11/25 22:54
Urinalysis Reflex To Culture Urgent
Date Specimen was Collected: 04/11/25
Time Specimen was Collected: 22:48
04/12/25 00:23
HYDROmorphone [Dilaudid] 0.5 mg IV NOW STA
04/12/25 00:30
Mag Hydrox/Al Hydrox/Simeth [Maalox] 30 ml Phenobarb/Hyoscy/Atropine/Scop [] 10 ml Viscous Lidocaine 2% [Xylocaine Viscous Cup] 10 ml PO NOW
Pantoprazole [Protonix IV] 40 mg IV NOW STA
04/12/25 00:41
Mag Hydrox/Al Hydrox/Simeth [Maalox] 30 ml .ROUTE .STK-MED ONE
Phenobarb/Hyoscy/Atropine/Scop [] 10 ml .ROUTE .STK-MED ONE
04/12/25 00:42
Viscous Lidocaine 2% [Xylocaine Viscous Cup] 15 ml .ROUTE .STK-MED ONE
04/12/25 00:48
US Abdomen Limited Urgent
Comment:
Reason For Exam: RUQ pain
04/12/25 00:50
D-Dimer Urgent
04/12/25 01:59
Sucralfate [Carafate] 1 gram PO NOW STA
04/12/25 04:49
HYDROmorphone [Dilaudid] 0.5 mg .ROUTE .STK-MED ONE
Ondansetron Injectable [Zofran] 4 mg .ROUTE .STK-MED ONE
04/12/25 04:50
Ondansetron Injectable [Zofran] 4 mg IV NOW STA
04/12/25 04:51
HYDROmorphone [Dilaudid] 0.5 mg IV NOW STA
04/12/25 05:11
CT Chest Angio W/wo Iv Contras Stat
Comment:
Reason For Exam: syncope chest pain, eval dissection, central pe
04/12/25 05:17
Admit/Transfer Patient As Directed
Co-Sign Provider:
Level of Care: Observation services
Assign to:: Telemetry
Physician / Group: [facility]
Diagnosis: syncope, abdominal pain
Reason for Telemetry: Syncope
Date to Stop Telemetry: 04/14/25
Time to Stop Telemetry: 11:00
PRN Pain Medication Management As Directed
May give lesser potent ordered pain med per pt: Yes
preference::
Protocol:: Medication orders for pain may be administered in a
manner that supports deferring to patient preference
when the pt is:
- Requesting an ordered lesser potent pain medication.
Least to most potent pain medications are defined
as: acetaminophen < NSAID < tramadol < opioids
(morphine, oxycodone, hydromorphone).
- Requesting a lesser dose of the same medication IF
ORDERED.
- Requesting a less intrusive route of administration
if both routes are prescribed by the provider (PO <
IV).
04/12/25 05:18
Code Status As Directed
Resuscitation Status: Full Code
04/12/25 07:04
Electrocardiogram (*1) Q6H
Reason for Study: Chest Pain
Comment: at admission and Q3H for total of 3, to be done with each troponin
Acetaminophen [Tylenol] 650 mg PO Q4HPRN PRN
Dextrose 5%/0.45%Sodchl 1000ML [D5/0.45%NaCl] 1,000 ml IV 80 mls/hr
Mag/Al/Simethicone [Maalox Plus] 1 tablet PO Q4HPRN PRN
Oxycodone [Roxicodone] 5 mg PO Q4HPRN PRN
04/12/25 07:04
Echo 2D MMode Color/Doppler Routine
Reason for Study: syncope
Activity As Directed
Activity Level: With Assistance
INT (Intravenous Needle Therapy) As Directed
Comment: maintain peripheral IV access
Intake/ Output As Directed
Frequency: Per unit guidelines
Orthostatic Vital Signs As Directed
Orthostatic VS Frequency: Daily
Pneumatic Compression Sleeves As Directed
Type: Knee high
Vital Signs As Directed
Frequency: q4h
Weight As Directed
Frequency: Once
Pulse Ox/spot Check [RESP] Routine
Quantity: 1
Special Instructions: on admission and then every shift if on oxygen
DX Deep Vein Thrombosis Video Routine
04/12/25 08:00
Famotidine [Pepcid] 20 mg IV Q12
04/12/25 08:55
Troponin I Q3H
Comment: at admit & Q3H for 3 total including ED draws, obtain ECG with each level
04/12/25 09:00
HYDROmorphone [Dilaudid] 0.5 mg IV Q4HPRN PRN
04/12/25 10:32
Troponin I Q3H
Comment: at admit & Q3H for 3 total including ED draws, obtain ECG with each level
04/12/25 11:00
Ondansetron Injectable [Zofran] 4 mg IV Q6HPRN PRN
04/12/25 22:00
macitentan-tadalafil [Opsynvi] See Dose Instructions PO HS
04/13/25 05:05
Complete Blood Count/No Diff IN AM
04/14/25 11:00
DC Protocol for Telemetry ONCE
Abnormal Lab Results
04/11/25
21:30
RBC 3.86 L 10^6/uL
(4.20-5.40)
Hct 36.5 L %
(37.0-47.0)
MCH 34.2 H pg
(27.0-31.0)
Neutrophils % 40.4 L %
(42.2-75.2)
Chloride 110 H mmol/L
(98-107)
Carbon Dioxide 19 L mmol/L
(22-30)
Creatinine 1.1 H mg/dL
(0.6-1.0)
Alkaline Phosphatase 23 L U/L
(38-126)
04/11/25 21:30
04/11/25 21:56
Vital Signs
Initial and Last Documented VS:
Initial Vital Signs
Temp Pulse Resp BP Pulse Ox
98.2 F 94 20 116/99 95
04/11/25 21:17 04/11/25 21:17 04/11/25 21:17 04/11/25 21:17 04/11/25 21:17
Last Documented Vital Signs
Temp Pulse Resp BP Pulse Ox
97.8 F 59 16 105/56 94
04/14/25 15:52 04/14/25 15:52 04/14/25 15:52 04/14/25 15:52 04/14/25 15:52
<Iwona Shah NP - Last Filed: 04/14/25 16:23>
*Radiology
Radiology exam reviewed: radiology read reviewed
*Pulse Oximetry
SaO2: 95
Oxygen Mode of Delivery: Room air
Patient hypoxic: no
<Alisia Fierro PA-C - Last Filed: 04/12/25 03:55>
*Pulse Oximetry
Patient hypoxic: no
*Critical Care Note
Total Time (30-74mins, 75-104mins- exclusive of procedures): Not Applicable
<Iwona Shah NP - Last Filed: 04/14/25 16:23>
Update Note
Update Note:
Patient to ED wtih severe upper abd pain tonight. She is approx 2.5 weeks post op appendectomy. No issues until tonight. Denies fever/chills. Given IVF, Dilaudid, zofran on arrival to ED and she is much more comfortable. Presentation tonight is
similar to her presentation 2.[address] repeated, results pending.
<Alisia Fierro PA-C - Last Filed: 04/12/25 03:55>
Update Note
Update Note:
Patient to ED wtih severe upper abd pain tonight. She is approx 2.5 weeks post op appendectomy. No issues until tonight. Denies fever/chills. Given IVF, Dilaudid, zofran on arrival to ED and she is much more comfortable. Presentation tonight is
similar to her presentation 2.[address] repeated, results pending.
Update: Received patient in signout pending CT scan. CT scan without acute findings however on reassessment patient is writhing in bed, rocking due to pain. She still describes a sharp pain in her right upper abdomen radiating up into her right
shoulder/upper back. She did have a syncopal episode earlier today however at this point has no shortness of breath. Still very tender on palpation. Will give patient another dose of IV pain medicine as well as GI cocktail. At this
point�consideration include possible gastritis, biliary etiology. With recent surgery and syncopal event�considered PE. Discussed with attending physician. Will check abdominal ultrasound to rule out biliary etiology not identified on CT scan as
well as D-dimer.
Update: Ultrasound without acute findings. D-dimer undetectable. At this point�extensive workup in emergency department negative however patient remains with discomfort despite multiple rounds of IV narcotic pain medication as well as persistent
vomiting. Will admit patient for further management/observation. Patient accepted to hospitalist service in stable condition.
ED Attending Note
<Iwona Shah NP - Last Filed: 04/14/25 16:23>
-
Portions of this chart may have been created with voice recognition software.� Occasional wrong word or��sound alike� substitutions may have occurred due to the inherent limitations of voice recognition software.
Discharge Plan
Departure
Patient Disposition: Admit
Date of Disposition: 04/12/25
Time of Disposition: 03:56
Presentation/result/management discussed w/ accepting MD/DO: Hospitalist
Discharge Problem:
Intractable right upper quadrant abdominal pain, Intractable vomiting
Interventions
Interventions:
*Risk Screen - Suicide Last Done: 04/11/25 21:17
*General Assessment Last Done: 04/11/25 21:17
*Neglect/Abuse Screening Last Done: 04/11/25 21:17
*ED- Fall Risk Assessment Last Done: 04/11/25 22:00
*ED COVID-19 Vaccine History Last Done: 04/11/25 22:00
*Nursing Disposition Last Done: 04/12/25 14:44
[facility] Assessment Last Done: 04/11/25 23:20
Discharge Date and Time
Discharge Date/Time: 04/12/25 14:48
[2025-04-11] MEDS: DILAUDID 0.5 MG IV (22:15)
[2025-04-11] MEDS: NSS 1000 IV (22:16)
[2025-04-11] MEDS: ZOFRAN 4 MG IV (22:16)
[2025-04-11 22:53] VITALS: BP 101/56
[2025-04-11 23:02] LABS: Urine Character Clear (Clear)
[2025-04-12] VITALS (12 sets, daily range): BP systolic 91–123; BP diastolic 62–72; PULSE 60–75; BMI 26.2
[2025-04-12] MEDS: PROTONIX IV 40 MG IV (00:44)
[2025-04-12] MEDS: MAALOX 30 PO (00:44)
[2025-04-12] MEDS: DILAUDID 0.5 MG IV ×6 (00:45→23:55)
[2025-04-12 01:54] LABS: D-Dimer < 0.27 ug/mlFEU (0.00-0.50)
[2025-04-12] MEDS: CARAFATE 1 GRAM PO (02:09)
--- NOTE | 2025-04-12 04:50 | HPS.HSE ---
Family Physician
-
Family Physician: Lisha Geller
Chief Complaint
-
Abdominal pain
History of Present Illness
This is a 45-year-old with past medical history significant for scleroderma complicated by pulmonary hypertension, who is approximately 3 weeks status post appendectomy presenting to the emergency department for intractable abdominal pain.
Patient reported that she had been feeling well since her surgery up until this evening. According to spouse patient had just finished cooking and eating medication when she went upstairs to her room. He then had dark backing and he came to
investigate. He found her on the floor laying flat and facedown. He had to shake her to get her to respond. She did came to and then afterward she started complaining of chest pain. Patient was unaware of the syncopal episode. She denied having
any antecedent nausea vomiting palpitations lightheadedness or dizziness. She denied any prior chest pain. She denied any prior abdominal pain.
Since then the patient has now been complaining of right upper quadrant and epigastric abdominal pain radiating to the chest jaw as well as right posterior shoulder. She denies feeling short of breath. She reports intractable nausea now. The pain
is constant and does not seem to be associated with movement or breathing. She denies any cough fevers or chills. She denies any nausea or vomiting.
In the emergency department she was afebrile, blood pressure was 100/60 with a pulse of 72 satting 95% on room air. ECG was normal sinus rhythm without any acute ST or T wave changes. Troponin is negative. D-dimer was negative.
CBC was unremarkable, electrolytes BUN/creatinine were all within normal range. LFTs were normal, lipase was normal. UA was negative.
CT abdomen and pelvis with IV contrast shows interval appendectomy, no adjacent abscess or free air, stool-filled colon and rectum without bowel obstruction.
Ultrasound of the abdomen shows normal gallbladder no sludge or stones, negative for Gil sign's no biliary ductal dilation.
Medical History
Past Medical History
Past Medical History: Reports Other (scleroderma, pulmonary HTN (2020), endometriosis)
Past Surgical History: Reports Cardiac (many RHC over the years), Gynocological (multiple surgeries for endometriosis) and Other (wisdom teeth)
Social History
Tobacco: Non-smoker
Alcohol: Occasional
Drug: None
Personal:
Living: With Family
Family History
Family History: Not pertinent
Allergies / Home Medications
Allergies reflects when Allergies were last updated in [employer].
Home Medications with original date entered in [employer]
Allergy/Medication List:
Allergies
Allergy/AdvReac Type Severity Reaction Status Date / Time
propoxyphene HCl (From Allergy Anaphylaxis Verified 03/22/25 22:04
[facility])
Home Medications
opsumt 10mg po daily (pulmonary HTN)
Review of Systems
-
History Source: Patient and Family
Constitutional: Reports No Symptoms and Other (syncope)
EENT: Reports No Symptoms
Respiratory: Reports No Symptoms
Cardiac: Reports Chest Pain
Abdomen/GI: Reports Abdominal Pain
: Reports No Symptoms
Musculoskeletal: Reports No Symptoms
Skin: Reports No Symptoms
Neurological: Reports No Symptoms
Endocrine: Reports No Symptoms
Hematologic/Lymphatic: Reports No Symptoms
Physical Exam
Vital Signs
Vital Signs
Temp Pulse Resp BP Pulse Ox
98.2 F 72 13 100/66 95
04/11/25 21:17 04/12/25 02:49 04/12/25 02:49 04/12/25 02:12 04/11/25 23:04
Physical Exam
General: Well Developed, Well Nourished and Pain
HEENT: NormoCephalic, Anicteric, Moist mucous membranes and Atraumatic
Respiratory: Clear
Cardiac: S1/S2 and Regular Rhythm
Breast: Deferred by me
GI: Soft, Non Distended, Normal Bowel Sounds and Tender (No rebound or guarding)
Rectal: Deferred by Provider
Genito-urinary: Deferred by me
Musculoskeletal: No Clubbing, No Cyanosis and No Edema
Skin: Warm
Neuro: AO x 3 and Nonfocal/grossly intact
Hematologic/Lymphatic: No Lymphadenopathy
Psych: Calm
Laboratory Results
-
04/11/25 21:30
04/11/25 21:56
Laboratory Results
Total Bilirubin Cancelled 04/11/25 21:56
AST Cancelled 04/11/25 21:56
ALT Cancelled 04/11/25 21:56
Alkaline Phosphatase Cancelled 04/11/25 21:56
Troponin I < 0.012 ng/ml 04/11/25 21:30
Lipase 206 U/L (23-300) 04/11/25 21:30
Data Reviewed
-
CT Scan: Report Reviewed by me
Medical Tests (Nuc Med, Echo, EKG etc): Image Personally Visualized and interpreted
Lab Data: Labs Reviewed by me
Old Records: Reviewed
Impression/Plan
-
IMPRESSION:
45-year-old female with past medical history significant for scleroderma and a pulmonary hypertension who is 3 weeks status post laparoscopic appendectomy and now presents to the emergency department following a witnessed syncopal episode at home
with development of persistent epigastric right upper quadrant and chest pain that is radiating to the neck, back as well as right thoracic shoulder. Unclear if she had pain prior to the syncopal episode but spouse says not. ECG is non-ischemic and
trop is negative. D-dimer is negative. Her w/u for abdominal pain in ED is negative and exam is not peritonitic. She has normal neurological exam.
PLAN:
Syncope with epigastric/chest pain radiating to the neck/back and shoulder with negative ecg and trop. Pain related vasovagal, orthostatic vs dissection.
- will obtain CT angio to rule out thoracic dissection. No vascular anomaly on CT a/p
- admit to telemetry x 24 hours if negative
- echocardiogram
- cycle troponin
- check orthostatics
- pain control for now
- clear liquid diet
- serial examinations
Epigastric pain - similar to presentation when she was found to have appendicitis now s/p appendectomy
- rule out dissection as above
- manage with famotidine, antiemetics and pain control
- normal abdominal ct
DVT PPX - SCDs for now
Code status - Full Code
[2025-04-12] MEDS: ZOFRAN 4 MG IV ×3 (04:51→20:02)
--- NOTE | 2025-04-12 08:13 | W.PN.HOSP.TC ---
Today's Communication/Plan
-
See PN
Assessment / Plan
Assessment / Plan
45yo F with PMX of scleroderma, pulmonary HTN, Hx of syncope 2/2 PAH, recent appendectomy 3 weeks ago came after episode of LOC, found by his upstairs, initially unresponsive, then confused, improved after arrival to ED. ALso patient
immediately started to c/o of chest pain radiating to R jaw, associated with RUQ abd pain similar to one that brought her to ED for appendicitis.
A/P:
#Syncope
recurrent
Previously thought to be 2/2 PAH, followed by , referred to [facility] for PAH mgmt
Trops WNL, no acute ACS signs on EKG
Cardio consult
Head CT
Echo
Carotid US
telemetry - showed minimal edwin in 50th episodically
Borderline BP - cannot exclude episode of hypotension and dehydration (with elevated Cr), check orthostatic VS
CTA chest without dissection or VTE
DDimer undetectable
#RUQ abd pain
#Stable 2.7cm R liver lobe hemangioma
#8m lesion in R liver lobe, most likely hemangioma
#small hiatal hernia
#small uncomplicated R diaphragmatic hernia
typical pain for gall bladder pathology, however LFT and CT abd showed no billiary abnormality, also no leukocytosis and no fever - doubt acute coholecystitis, therefore will attempt to exclude biliary colic with MRCP. Add MRI abd w/wo contrast with
liver lesions findings, since as per communication with [facility] - concern for irregular margings.
[facility] Eval
startedon Famotidine on admisison
pain mgmt, zofran PRN
#Elevated cr, borderline TON
ELevated to 1.1 from 0.7-0.8
IVF
follow BMP
possible dehydration
patient denies NSAIDs use over past week
#Pulmonary HTN
#Known pulmonary nodules, stable
#Scleroderma
#DJD
follow with established specialists and PCP
cont home meds
#Uterine fibroids
known to patient
follow with [facility] DISTRIBUT[facility] outpatient
#Constipation
laxative
DVT ppx SCDs
Full code
I have spent at least 58min reviewing chart, test results, communication with consultants and providing direct patient care
Anticipated Discharge: Within 24 hours
Subjective/Interval History
-
Date of Service: April 12, 2025
Objective Data
-
Labs:
Laboratory Results
04/11/25 04/11/25 04/12/25
21:30 21:56 07:15
WBC 5.0
Hgb 13.2
Hct 36.5 L
Plt Count 276
Sodium 139 Cancelled Pending
Potassium 4.0 Cancelled Pending
Chloride 110 H Cancelled Pending
Carbon Dioxide 19 L Cancelled Pending
BUN 8 Cancelled Pending
Creatinine 1.1 H Cancelled Pending
Glucose 97 Cancelled Pending
Calcium 9.2 Cancelled Pending
Total Bilirubin 1.1 Cancelled
AST 21 Cancelled
ALT < 10 Cancelled
Alkaline Phosphatase 23 L Cancelled
Vital Signs:
Vital Signs
Temp Pulse Resp BP Pulse Ox
98.5 F 68 19 100/66 95
04/12/25 05:41 04/12/25 05:30 04/12/25 05:30 04/12/25 02:12 04/11/25 23:04
Review of Systems
-
History Source: Patient
All other systems: Reviewed and negative
Abdomen/GI: Reports Abdominal Pain
Physical Exam
-
General: Comfortable
HEENT: Normocephalic
Respiratory: Clear to Auscultation
Cardiac: Regular Rhythm; Negative Murmur
GI: Soft, Nontender, Nondistended and Tender (RUQ)
Musculoskeletal: No Clubbing, No Cyanosis and No Edema
Neuro: Awake, Alert, Oriented and AO x 3
Psych: Calm and Anxious
--- NOTE | 2025-04-12 08:28 | CON.CAR ---
Addendum entered and electronically signed by Ronny Harris MD 04/12/25 11:36:
I saw and examined the patient.
The SERVICE TRAINER's note was reviewed and I agree with the note.
Comment:
45-year-old female with pulmonary hypertension from connective tissue disease and appendicitis status post appendectomy 3 weeks ago who presents following an episode of syncope. History obtained from patient and her significant other. She was
feeling well and like her normal self yesterday and had just made dinner when she syncopized. She does not remember the event, but her significant other reported that he heard a noise from the other room and found her face down. She was somewhat
confused afterwards and had right upper quadrant pain that felt similar to her appendicitis. She was brought to the ER. Her pain has improved but she also now has significant nausea. She thinks this may have been related to getting contrast for
her MR abdomen.
Physical exam is notable for RRR, no murmurs, no lower extremity edema, clear lungs, abdomen diffusely tender to palpation
Labs with creatinine 1.1-0.9, troponin negative x 3, TSH 5.2, T4 normal
CT PE negative
MR abdomen with diffuse hepatic steatosis, hepatomegaly, multiple hepatic hemangiomas, and mild gallbladder distention without evidence of inflammation
ECG 04/12/2025: Sinus bradycardia, QTc 408 ms, no evidence of ischemia
Unclear etiology for her syncope. She had a mild TON which improved with IV fluids. May have been orthostatic in the setting of recent surgery and baseline low blood pressures due to macitentan�tadalafil. We will get an echocardiogram to rule out
structural heart disease and monitor her on telemetry. If her workup is unrevealing, she should wear an outpatient monitor for further investigation of arrhythmia.
Original Note:
Consultation
Consultation Request
Date/Time Consultation Requested: 04/12/25713
Date/Time Consultation Performed: 04/12/25 3415
Requesting Provider: Dr. Ortiz
Performing Provider: Alicia HAGAN for Dr. Harris
Reason for Consultation: syncope, CP
Medical History
-
Chief Complaint: syncope, chest and abdominal pain
History of Present Illness:
45 y/o female (seen in our office by Dr. Salcedo 2022) with pulmonary hypertension related to connective tissue disease (followed by [facility], reports good control on Opsynvi) and endometriosis who is here for evaluation after around 830 last night she
was found face down by her on the floor with decreased LOC. He did not hear a fall, the dog alerted him. She does not recall this or what happened. She reported left-sided upper abdominal and chest discomfort that went up to her right side
of her neck afterward. The pain felt achy in the abdomen and chest, but sharp in the neck (like an electric shock). She still has it presently, but pain meds have taken the edge off. It has not gone away since it came on. She is normally active
without CP. There is no SOB. This is the same pain she felt with her recent appendicitis. She is in no distress at the time of my assessment.
Past Medical History
Past Medical History: Other (as above)
Social History
Tobacco: Former Smoker
Family History
Family History: Reviewed & Not Pertinent
Allergies / Home Medications
Allergy/AdvReac Type Severity Reaction Status Date / Time
propoxyphene HCl (From Allergy Anaphylaxis Verified 03/22/25 22:04
[facility])
�Medication �Instructions �Recorded �Confirmed �Type
acetaminophen 325 mg tablet 650 mg (2 x 325 mg) PO Q4HPRN PRN 03/23/25 Rx
mild pain #1 tab
ibuprofen 200 mg tablet 400 - 600 mg (2 - 3 x 200 mg) PO 03/23/25 Rx
Q6HPRN PRN moderate pain #1 tab
macitentan 10 mg-tadalafil 20 mg 1 tab PO HS 03/23/25 03/23/25 History
tablet (Opsynvi)
oxycodone 5 mg tablet 5 mg PO Q4HPRN PRN 03/23/25 Rx
breakthrough/severe pain #10 tabs
Review of Systems
-
History Source: Patient
All other systems: Negative unless noted
Cardiac: Chest Pain and Syncope
Abdomen/GI: Abdominal Pain
Physical Exam
Vital Signs
Temp Pulse Resp BP Pulse Ox
97.9 F 56 12 91/64 93
04/12/25 07:30 04/12/25 07:30 04/12/25 07:30 04/12/25 07:30 04/12/25 07:30
Lab Results
04/11/25 21:30
Troponin I < 0.012 ng/ml 04/11/25 21:30
Physical Exam
General: Well Developed, Well Nourished and No Apparent Distress
HEENT: Normocephalic and Anicteric
Respiratory: Clear and Non Labored Respirations
Cardiac: Regular Rhythm
Musculoskeletal: No Edema
Skin: Warm and Dry
Neuro: AO x 3
Psych: Calm
Impression / Plan
-
LOC/syncope:
-etiology unclear
-tele is fine, echo to be updated. EKG stable overall from previous to my review.
-creatinine was up and she is s/p IVF (2L). BP on low end at times- orthos are pending.
-head CT is negative
PAH:
-continue Opsynvi and following with [facility]
-update echo as above
Chest/neck/abdominal pain:
-similar to pain that brought her in with appendicitis (recent appendectomy). Abdominal pain worse to palpation.
-surgery is consulted
-pain meds per primary
-trop and EKG unremarkable so far, checking echo. Denies CP with exertion. No dissection or PE on CT scan.
-MRI is planned for further EvaluationAbdominal pain worse to palpation.
Data Reviewed
-
EKG: Tracing Personally Visualized and interpreted (SB 49 BPM)
CT Scan: Report Reviewed by me (CT chest: no PE or dissection. 1. Small hiatal hernia. 2. Mild subsegmental atelectasis and scarring in the basilar segments of the lower lobes. 3. Small fat-containing right posterior diaphragmatic hernia.)
Medical Tests (Nuc Med, Echo etc): Report Reviewed by me (echo 11/13/23: Normal biventricular size and systolic function without regional wall motion abnormality. Estimated LVEF 55-60%. Mild tricuspid regurgitation. Normal PASP. Estimated
pulmonary artery pressure of 28 mmHg. Assuming a right atrial pressure of 3 mmHg.)
Labs: Labs Reviewed by me
[2025-04-12] MEDS: PEPCID 20 MG IV ×2 (08:48→20:10)
[2025-04-12] MEDS: NSS (PRESERVATIVE FREE) 8 ML IV ×2 (08:48→20:11)
[2025-04-12] MEDS: NSS 1000 IV ×2 (08:50→22:33)
[2025-04-12 09:25] LABS: Blood Urea Nitrogen 10 mg/dl (7-17); Calcium 8.3 mg/dl (8.4-10.2); Carbon Dioxide 19 mmol/L (22-30); Chloride 111 mmol/L (98-107); Glucose 78 mg/dl (70-99); HDL Cholesterol 62 mg/dl; Potassium 4.4 mmol/L (3.5-5.1); Sodium 135 mmol/L (135-145); eGFR > 60.00
[2025-04-12 09:33] LABS: Troponin I < 0.012 ng/ml
[2025-04-12 09:59] LABS: LDL Cholesterol, Direct 56 mg/dl
[2025-04-12 11:01] LABS: Troponin I < 0.012 ng/ml
--- NOTE | 2025-04-12 11:45 | CON.GS ---
Addendum entered and electronically signed by Grupo Mott MD 04/12/25 17:59:
I saw and examined the patient independently.
The Property Field Adjuster's note was reviewed and I agree with the note, assessment and plan except where noted below.
Comment: This is a 44-year-old female status post appendectomy with Dr. Foley in early March who presents with right upper quadrant pain but imaging workup to date negative.
Obtain HIDA scan.
Surgery will follow
Original Note:
Consultation
-
Date/Time Consultation Performed: 04/12/25 1145
Medical History
-
Chief Complaint: Epigastric and RUQ pain
History of Present Illness:
Ms Rodriguez is a 45 yo female s/p recent appendectomy with Dr. Foley on 03/23/2025 with an additional history of pulmonary HTN related to connective tissue disease (followed by [facility], reports good control on Opsynvi) and endometriosis. She presents
through the ED with syncope as well as RUQ and epigastric pain. Yesterday, she had unwitnessed syncope shortly after having dinner and was found face down by her significant other. She does not recall the events. She was somewhat confused afterwards
and had chest pain radiating into the jaw with right upper quadrant pain. She notes similar pain around the time she had appendicitis as well. She has been reporting nausea but no vomiting. She denies felling constipated and notes she passed a small
BM yesterday. On exam, lap incisions are well healed. Tenderness present to the epigastrium and RLQ. No distention present. Mother at bedside and reports multiple significant stressors in the family currently with the recent passing of a close
family member.
Past Medical History
Past Medical History: Other (pulmonary hypertension related to connective tissue disease (followed by [facility], reports good control on Opsynvi), endometriosis, known liver hemangiomas)
Past Surgical History: Appendectomy (03/23/2025) and Gynecological (tubal ligation)
Social History
Tobacco: Non-Smoker
Alcohol: Occasional
Personal:
Living: With Family
Family History
Family History: Reviewed & Not Pertinent
Allergies / Home Medications
Allergy/AdvReac Type Severity Reaction Status Date / Time
propoxyphene HCl (From Allergy Anaphylaxis Verified 03/22/25 22:04
[facility])
�Medication �Instructions �Recorded �Confirmed �Type
acetaminophen 325 mg tablet 650 mg (2 x 325 mg) PO Q4HPRN PRN 03/23/25 Rx
mild pain #1 tab
ibuprofen 200 mg tablet 400 - 600 mg (2 - 3 x 200 mg) PO 03/23/25 Rx
Q6HPRN PRN moderate pain #1 tab
macitentan 10 mg-tadalafil 20 mg 1 tab PO HS 03/23/25 03/23/25 History
tablet (Opsynvi)
oxycodone 5 mg tablet 5 mg PO Q4HPRN PRN 03/23/25 Rx
breakthrough/severe pain #10 tabs
Review of Systems
-
History Source: Patient and Family
All other systems: Negative unless noted
A 10 point review of systems was completed, and was negative except as per HPI.
Physical Exam
Vital Signs
Temp Pulse Resp BP Pulse Ox
97.9 F 56 12 91/64 93
04/12/25 07:30 04/12/25 07:30 04/12/25 07:30 04/12/25 07:30 04/12/25 07:30
Lab Results
04/11/25 21:30
04/12/25 08:55
WBC 5.0 10^3/uL (4.8-10.8) 04/11/25 21:30
Hgb 13.2 g/dL (12.0-16.0) 04/11/25 21:30
Hct 36.5 % (37.0-47.0) L 04/11/25 21:30
Plt Count 276 10^3/uL (130-400) 04/11/25 21:30
Abs Immat Gran (auto) 0.0 10^3/uL (0-0.05) 04/11/25 21:30
Neutrophils % 40.4 % (42.2-75.2) L 04/11/25 21:30
Physical Exam
General: Well Developed and Well Nourished; Negative Comfortable
HEENT: Moist Mucous Membranes
Respiratory: Non Labored Respirations
GI: Soft, Non Distended and Tender (epigastrium/RUQ)
Skin: Other (Lap incisions well healed)
Neuro: AO x 3
Data Reviewed
-
CT Scan: Image Personally Visualized and interpreted, Report Reviewed by me, Discussed with Physician, Discussed with Patient and Discussed with Family
MRI: Image Personally Visualized and interpreted, Report Reviewed by me, Discussed with Physician, Discussed with Patient and Discussed with Family
Labs: Labs Reviewed by me, Discussed with Physician, Discussed with Patient and Discussed with Family
Old Records: Reviewed
Assessment / Plan
-
Ms Rodriguez is a 45 yo female s/p recent appendectomy with Dr. Foley on 03/23/2025 with an additional history of pulmonary HTN related to connective tissue disease (followed by [facility], reports good control on Opsynvi) and endometriosis. She presents
through the ED with syncope with LOC as well as RUQ and epigastric pain. RUQ and epigastrium tender on exam. Currently with c/o nausea. Incisions healed well without lower abdominal tenderness.
No leukocytosis. Normal LFT's and lipase. Elevated triglycerides and TSH. Afebrile. VSS (low normal BP and HR)
CT imaging reviewed with moderate stool burden noted. Operative bed without abscess or concerning findings. Enlarged uterus with ?fibroid.
US with hemangioma, no acute abnormalities of the gallbladder.
MRCP from this am again demonstrating hemangiomas, mild steatosis of the liver with mildly enlarged gallbladder. No cholelithiasis on imaging. No pericholecystic wall thicking or edema.
Plan:
Undergoing cardiac work up for syncope
Will check HIDA to further rule out gallbladder pathology
Dulcolax suppository to help relieve stool burden
Antiemetics/analgesics as needed
NPO for testing
--- NOTE | 2025-04-12 12:09 | CM ---
CM met with pt, SO/Harvinder and mother/Odette bedside
Pt and SO reside in a multi-story home with 10STE, full flight to 2nd floor
Pt is indep with her ADLs, denies use of DMEs
PCP- Lisha Geller
Rx- [facility]
Pt is OBS- OBS notice verbally reviewed
Copy provided
Discharge Disposition- anticipate home no needs
[2025-04-12] MEDS: DULCOLAX 10 MG RECTAL (12:10)
--- NOTE | 2025-04-12 14:33 | W.PN.UPDATE ---
Update Note
Progress Note Update
D/W Nuclear medicine team. Pt unfortunately received narcotics just prior to going to [facility] for HIDA scan and test unable to be preformed.
Hold narcotics after MN and make NPO after MN for HIDA scan tomorrow AM
--- NOTE | 2025-04-12 17:00 | PTCARENOTE ---
Pt received from ED and walked to bed from stretcher without assistance. Family members @bedside. Pt oriented x3 and VSS. IV fluids infusing. Pt stated she had just gotten a dose of pain medication in the ED and feels better at this time. Stating
pain is 3/10. Pt oriented to the unit by this RN. Plan for HIDA scan in the morning, pt aware. Call kiran within reach.
[2025-04-12] MEDS: ROXICODONE 5 MG PO (20:01)
[2025-04-13] VITALS (7 sets, daily range): BP systolic 100–121; BP diastolic 55–80; PULSE 51–53; BMI 26.5
--- NOTE | 2025-04-13 02:29 | DOWNTIME ---
There was a enercast Client Horse Show Manager Downtime on 04/13/2025 from 0100 to 04/13/2025 at 0220. Downtime documentation of patient's care, including medication administrations, has been reconciled in the electronic record per guidelines. Refer to the
patient's paper chart under the miscellaneous tab to see printed paper medication records and downtime forms.
[2025-04-13 06:04] LABS: Hematocrit 33.8 % (37.0-47.0); Hemoglobin 11.4 g/dL (12.0-16.0); Mean Corp Hgb Conc. 33.7 g/dL (33.0-37.0); Mean Corpuscular Volume 98.5 fL (81.0-99.0); Platelet Count 202 10^3/uL (130-400); Red Cell Dist. Width 13.2 % (11.5-14.5)
[2025-04-13 06:06] LABS: Blood Urea Nitrogen 6 mg/dl (7-17); Calcium 7.8 mg/dl (8.4-10.2); Carbon Dioxide 22 mmol/L (22-30); Chloride 112 mmol/L (98-107); Estimated Creatinine Clearance 72 ml/min; Glucose 86 mg/dl (70-99); Potassium 4.0 mmol/L (3.5-5.1); Sodium 135 mmol/L (135-145); eGFR > 60.00
[2025-04-13 07:48] LABS: ALT (SGPT) < 10 U/L (0-35); AST (SGOT) 17 U/L (14-36); Albumin 3.3 g/dl (3.5-5.0); Alkaline Phosphatase < 20 U/L (38-126); Total Protein 5.5 g/dl (6.3-8.2)
[2025-04-13] MEDS: NSS 1000 IV ×2 (08:27→23:39)
[2025-04-13] MEDS: PEPCID 20 MG IV ×2 (08:27→19:43)
[2025-04-13] MEDS: NSS (PRESERVATIVE FREE) 8 ML IV ×2 (08:27→19:43)
[2025-04-13] MEDS: ZOFRAN 4 MG IV ×2 (08:41→19:40)
[2025-04-13] MEDS: TORADOL 15 MG IV (08:41)
--- NOTE | 2025-04-13 10:11 | W.PN.CD ---
Today's Communication / Plan
-
Continue tele
Reach out to pulm htn doc at [facility]
More than 55 min spent, old records, all echo images reviewed, discussed with colleagues, wrote note
Impression / Plan
-
LOC/syncope:
-etiology unclear
-tele is still fine
- Echo with good LV/RV/valves but pulmonary HTN has worsened. PASP now 63 mmHg.
- PASP 110 mmHg by echo here in 06/2022 but NORMAL at [facility] in Oct 2024
- No pulm embolus on CTA here
PAH:
-continue Opsynvi and following with [facility]
-update echo as above
- Echo with good LV/RV/valves but pulmonary HTN has worsened. PASP now 63 mmHg.
- PASP 110 mmHg by echo here in 06/2022 but NORMAL at [facility] in Oct 2024
- She will need reevaluation by her pulm HTN specialist (Dr. Annabelle Brantley) soon!
Chest/neck/abdominal pain:
-similar to pain that brought her in with appendicitis (recent appendectomy). Abdominal pain worse to palpation.
-surgery is consulted => plan for HIDA
-pain meds per primary
-trop and EKG unremarkable so far, checking echo. Denies CP with exertion. No dissection or PE on CT scan.
-MRI:
1. Mild diffuse hepatic steatosis.
2. Mild hepatomegaly.
3. Multiple hepatic hemangiomas (largest 2.8 cm).
4. Mild gallbladder distention.
Physical Exam
Vital Signs/Labs
Vital Signs
Temp Pulse Resp BP Pulse Ox
98.4 F 54 17 100/55 100
04/13/25 07:16 04/13/25 07:16 04/13/25 07:16 04/13/25 07:16 04/13/25 07:16
04/12/25 04/13/25 04/14/25
06:59 06:59 06:59
Actual Weight 65.635 kg
04/13/25 05:05
04/13/25 05:05
Triglycerides 405 mg/dl (10-149) H 04/12/25 08:55
LDL Cholesterol, Calc mg/dl 04/12/25 08:55
VLDL Cholesterol, Calc mg/dl (0-30) 04/12/25 08:55
HDL Cholesterol 62 mg/dl 04/12/25 08:55
Free T4 0.93 ng/dl (0.78-2.19) 04/12/25 08:55
LAB Results
04/11/25 04/12/25 04/12/25
21:30 08:55 10:32
Troponin I < 0.012 < 0.012 < 0.012
Physical Exam
Constitutional: No acute distress
EENT: Anicteric
Cardiovascular: Rhythm & rate is regular and Pedal edema is absent
Respiratory: Respiratory effort normal and Lungs clear to auscul.
GI: Soft
Data Reviewed
-
Date of Service: April 13, 2025
--- NOTE | 2025-04-13 10:35 | W.PN.UPDATE ---
Addendum entered and electronically signed by Harlan Salcedo MD 04/13/25 10:45:
We need her to be on her pulmonary hypertension medications prior to right heart catheterization.
Original Note:
Update Note
Progress Note Update
Spoke with her pulmonary hypertension specialist at [facility] Dr. Annabelle Nagy cell phone [phone].
He feels that her PASP has been underestimated by serial echoes. Her last right heart catheterization revealed elevated PA pressure but low RA pressure and he is managing her by looking at RA pressure and cardiac output.
He suspects that she has a tendency towards underfilling of the right ventricle.
He would like us to progress to right heart catheterization to compare them to her most recent invasive numbers. If they are stable he would recommend continuing current therapy. If she has significant decompensated she would require transfer to
[facility].
October 2023 RA 4 PA /, PCWP 10 cardiac index 3.2 SVI 52 PVR 3.1 Wood units SVR 1400. That led to a decrease of tadalafil from 40 to 20 mg daily
[2025-04-13] MEDS: ROXICODONE 5 MG PO (11:41)
--- NOTE | 2025-04-13 12:45 | W.PN.HOSP.TC ---
Today's Communication/Plan
-
RHC
Pain mgmt
check LDH, retics and blood parasite screen
Assessment / Plan
Assessment / Plan
45yo F with PMX of scleroderma, pulmonary HTN, Hx of syncope 2/2 PAH, recent appendectomy 3 weeks ago came after episode of LOC, found by his upstairs, initially unresponsive, then confused, improved after arrival to ED. ALso patient
immediately started to c/o of chest pain radiating to R jaw, associated with RUQ abd pain similar to one that brought her to ED for appendicitis. With negative abd w/u - possibility that pain caused by decompensated pulmonary HTN. RHC by card on
04/13/25
A/P:
#Syncope
#Pulmonary HTN
recurrent
Previously thought to be 2/2 PAH, followed by , referred to [facility] for PAH mgmt
Trops WNL, no acute ACS signs on EKG
Tele without clinically significant arrhythmia
Cardio consult
Head CT: no acute abnormality
Echo: Compared to prior echocardiogram in October 2023, PASP has increased from 28 mmHg to 63 mmHg
Carotid US neg for clinically significant stenosis
Borderline BP - cannot exclude episode of hypotension and dehydration (with elevated Cr), check orthostatic VS
CTA chest without dissection or VTE
DDimer undetectable
Planned for RHC by cardiology to evaluate pressures as pr their conversation with [facility]. If pressures worsened decompesated - patient will need transfer to [facility]
#RUQ abd pain
#Stable 2.7cm R liver lobe hemangioma
#8m lesion in R liver lobe, hemangioma
#small hiatal hernia
#small uncomplicated R diaphragmatic hernia
#Hepatic steatosis
[facility] Eval
started on Famotidine on admission
pain mgmt, zofran PRN
MRCP and HIDA neg for acute hepatobiliary pathology
#Elevated cr, borderline TON
resolved on IVF
#Recurrent mild leukopenia
#Recurrent mild anemia
follow CBC
outpatient w/u with PCP advised
#Indirect bilirubinemia
check LDH, retics, blood parasite screen with recent up-stick of tick-borne illnesses
#Known pulmonary nodules, stable
#Scleroderma
#DJD
follow with established specialists and PCP
cont home meds
#Uterine fibroids
known to patient
follow with DRILLING MACHINE OPERATOR outpatient
#Constipation
laxative
DVT ppx SCDs
Full code
I have spent at least 58min reviewing chart, test results, communication with consultants and providing direct patient care
Anticipated Discharge: > 48 hours
Subjective/Interval History
-
Date of Service: April 13, 2025
Objective Data
-
Labs:
Laboratory Results
04/13/25
05:05
WBC 3.7 L
Hgb 11.4 L
Hct 33.8 L
Plt Count 202 D
Sodium 135
Potassium 4.0
Chloride 112 H
Carbon Dioxide 22
BUN 6 L
Creatinine 0.9
Glucose 86
Calcium 7.8 L
Total Bilirubin 1.9 H
AST 17
ALT < 10
Alkaline Phosphatase < 20 L
Vital Signs:
Vital Signs
Temp Pulse Resp BP Pulse Ox
98.3 F 58 17 108/61 97
04/13/25 11:54 04/13/25 11:54 04/13/25 11:54 04/13/25 11:54 04/13/25 11:54
I&O
04/12/25 04/13/25 04/14/25
06:59 06:59 06:59
Intake Total 1020 / 1020
Balance 1020 / 1020
Review of Systems
-
History Source: Patient
All other systems: Reviewed and negative
Abdomen/GI: Reports Abdominal Pain
Physical Exam
-
General: No Apparent Distress
Respiratory: Clear to Auscultation
Cardiac: Regular Rhythm
GI: Soft, Nondistended and Tender
Musculoskeletal: No Clubbing, No Cyanosis and No Edema
Psych: Calm
--- NOTE | 2025-04-13 12:58 | W.PN.GS2 ---
Today's Communication / Plan
-
-- No indication for further surgical intervention or management.
-- Call with questions or concerns
Assessment / Plan
-
Patient is a 45 yo F s/p laparoscopic appendectomy on 03/23/2025 presenting with epigastric and chest discomfort.
Of note, current symptoms were present preoperatively. Most recent episode associated with a syncope. Extensive workup including CT scan, ultrasound, MRI, and HIDA scan, all of which have been unremarkable. Most notable finding on her current
workup is a elevated PA pressure on a recent ISAI. Most likely source for her symptoms relate to a cardiopulmonary standpoint. No indication for further surgical intervention or management.
Wounds healing well. Activity as tolerated. Diet as tolerated. Pathology reviewed. All questions answered. Call or return to the office as needed.
Subjective Data
-
Date of Service: April 13, 2025
Denies any abdominal pain or discomfort. No nausea or vomiting. No fevers or chills. Moving her bowels. Current symptoms are more chest/epigastric into the RIGHT neck.
Objective Data
-
Intake and Output
04/12/25 04/13/25 04/14/25
06:59 06:59 06:59
Intake Total 1020 / 1020
Balance 1020 / 1020
Intake:
Oral fluids 1020 / 1020
Other:
Number of approximated MODERATE 1
amounts of urine
Vital Signs
Temp Pulse Resp BP Pulse Ox
98.3 F 58 17 108/61 97
04/13/25 11:54 04/13/25 11:54 04/13/25 11:54 04/13/25 11:54 04/13/25 11:54
Lab Results
04/13/25 05:05
04/13/25 05:05
Calcium 7.8 mg/dl (8.4-10.2) L 04/13/25 05:05
Total Bilirubin 1.9 mg/dl (0.2-1.3) H 04/13/25 05:05
Direct Bilirubin 0.1 mg/dl (0.0-0.4) 04/13/25 05:05
AST 17 U/L (14-36) 04/13/25 05:05
ALT < 10 U/L (0-35) 04/13/25 05:05
Alkaline Phosphatase < 20 U/L (38-126) L 04/13/25 05:05
Total Protein 5.5 g/dl (6.3-8.2) L D 04/13/25 05:05
Albumin 3.3 g/dl (3.5-5.0) L 04/13/25 05:05
Physical Exam
-
Gen: NAD
Abd: soft, NT/ND, non-peritoneal, incisions c/d/i - no erythema, ecchymosis or drainage
Patient has a mcclendon catheter: No
Patient has a central line: No
[2025-04-13] MEDS: NON-FORMULARY ITEM PO (13:11)
[2025-04-13 13:27] LABS: LDH 146 U/L (120-246)
[2025-04-13 14:18] LABS: Reticulocyte Count 1.8 % (0.4-2.8)
--- NOTE | 2025-04-13 14:40 | PTCARENOTE ---
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 Hemostasis pressure dressing intact to R AC. No drainage, redness or irritation noted. VSS. No pain reported to site.
--- NOTE | 2025-04-13 15:18 | ITS.CL.PN ---
Supervisor Kennel - Procedure Note
Procedure
Procedure Note:
CARDIAC CATHETERIZATION REPORT
Date of Procedure: 04/13/2025
Referring: Dr. Benjy Salcedo MD
Indication: pulmonary hypertension
PROCEDURE: right heart catheterization
ACCESS: 5F right antecubital vein (closure: manual hemostasis)
CATHETERS: 5F Anderson-Liang
MODERATE SEDATION: 25 minutes of moderate sedation was utilized. An independent medical staff physician was present to assist with and help manage the patient's level of consciousness and physiologic status.
HEMODYNAMIC DATA
SBP 119/63 (mean 85) mmHg
RA 12 mmHg
RV 75/7 (EDP 15) mmHg
PA 74/23 (mean 45) mmHg
PCWP 16 mmHg
SaO2 96.0%
SvO2 69.4%
Hb 12.2 g/dL
CO/CI 4.71/2.83 L/min/m2
SVR 1240 dsc*-5
PVR 6.2 Wood units
RADIATION: dose 3.24 mGy; DAP 0.45 Gy*cm2; fluoroscopy time 0.6 min
CONCLUSIONS
1. Mildly elevated biventricular filling pressures
2. Severe postcapillary pulmonary hypertension
3. Normal cardiac output
RECOMMENDATION: outpatient follow up with pulmonary hypertension
Copy to: Dr. Annabelle Brantley MD (launderer hand)
Signed: Jimenez Koehler MD, PhD
[2025-04-13] MEDS: DILAUDID 0.5 MG IV ×3 (15:23→23:41)
--- NOTE | 2025-04-13 15:34 | CM ---
Spoke with pt in room.
She said at discharge her mom Odette will drive her home.
Offered VN she declined.
PLAN Home no needs
[2025-04-13] MEDS: NON-FORMULARY ITEM 1 TABLET PO (23:40)
[2025-04-13] MEDS: NSS IV (23:52)
[2025-04-14] VITALS (7 sets, daily range): BP systolic 94–110; BP diastolic 55–79
[2025-04-14] MEDS: ROXICODONE 5 MG PO (05:29)
[2025-04-14 05:46] LABS: Hematocrit 32.7 % (37.0-47.0); Hemoglobin 10.9 g/dL (12.0-16.0); Mean Corp Hgb Conc. 33.3 g/dL (33.0-37.0); Mean Corpuscular Volume 100.3 fL (81.0-99.0); Platelet Count 199 10^3/uL (130-400); Red Cell Dist. Width 13.2 % (11.5-14.5)
[2025-04-14 06:14] LABS: ALT (SGPT) < 10 U/L (0-35); AST (SGOT) 20 U/L (14-36); Albumin 3.2 g/dl (3.5-5.0); Alkaline Phosphatase < 20 U/L (38-126); Blood Urea Nitrogen 4 mg/dl (7-17); Calcium 8.3 mg/dl (8.4-10.2); Carbon Dioxide 23 mmol/L (22-30); Chloride 113 mmol/L (98-107); Estimated Creatinine Clearance 81 ml/min; Glucose 86 mg/dl (70-99); Magnesium 2.0 mg/dl (1.6-2.3); Potassium 4.0 mmol/L (3.5-5.1); Sodium 137 mmol/L (135-145); Total Protein 5.3 g/dl (6.3-8.2); eGFR > 60.00
[2025-04-14] MEDS: PEPCID 20 MG IV ×2 (08:31→19:59)
[2025-04-14] MEDS: NSS (PRESERVATIVE FREE) 8 ML IV ×2 (08:31→19:56)
[2025-04-14] MEDS: ZOFRAN 4 MG IV ×2 (08:31→14:39)
[2025-04-14 08:43] LABS: Folate 13.4 ng/ml (2.76-20); Vitamin B12 272 pg/ml (239-931)
--- NOTE | 2025-04-14 09:31 | W.PN.CD ---
Today's Communication / Plan
-
Continue usual PULM HTN MED w/o change
Lasix today and tomorrow, none at discharge
If Lasix ineffective in resolving pain then more GI/Surgical w/u is suggested
Pt to see her pulm HTN doc in 1-3 weeks post discharge
Dr. Brantley may issue her a 14 day monitor
58 minutes spent caring for pt today
Impression / Plan
-
LOC/syncope:
-etiology unclear
-tele is still fine, asymptomatic mild sinus bradycardia is not concerning
- Echo with good LV/RV/valves but pulmonary HTN has worsened. PASP now 63 mmHg.
- PASP 110 mmHg by echo here in 06/2022 but NORMAL at [facility] in Oct 2024
- No pulm embolus on CTA here
- It is possible that the abdominal issues triggered a vasovagal event
- Can consider 14 day monitor as outpatient
PAH:
-continue Opsynvi and following with [facility]
-update echo as above
- Echo with good LV/RV/valves but pulmonary HTN has worsened. PASP now 63 mmHg.
- PASP 110 mmHg by echo here in 06/2022 but NORMAL at [facility] in Oct 2024
- We proceed to RHC on 04/14/[address] Brantley at [facility]. He is aware that her echo's at times UNDERESTIMATE her PASP
- I reviewed the RHC date with Dr. Brantley last evening and he SUGGESTS NO CHANGE IN pulm HTN MED. He did suggest we could give a dose or two of Lasix (RA pressure 12) but no Lasix at discharge
- Small chance elevated RA pressure is transmitted to liver causing pain but the normal LFTs argue against hepatic congestion
- Will give a dose of Lasix today and tomorrow but if pain is not improved then her heart is not involved her abdominal pain and more GI/surgical evaluation will be appropriate
Chest/neck/abdominal pain:
-similar to pain that brought her in with appendicitis (recent appendectomy). Abdominal pain worse to palpation.
-surgery is consulted => plan was for HIDA
-pain meds per primary
-trop and EKG unremarkable so far, checking echo. Denies CP with exertion. No dissection or PE on CT scan.
-MRI:
1. Mild diffuse hepatic steatosis.
2. Mild hepatomegaly.
3. Multiple hepatic hemangiomas (largest 2.8 cm).
4. Mild gallbladder distention.
Subjective: Pain persists, mostly RUQ
RHC 04/13/2025
HEMODYNAMIC DATA
SBP 119/63 (mean 85) mmHg
RA 12 mmHg
RV 75/7 (EDP 15) mmHg
PA 74/23 (mean 45) mmHg
PCWP 16 mmHg
SaO2 96.0%
SvO2 69.4%
Hb 12.2 g/dL
CO/CI 4.71/2.83 L/min/m2
SVR 1240 dsc*-5
PVR 6.2 Wood units
RADIATION: dose 3.24 mGy; DAP 0.45 Gy*cm2; fluoroscopy time 0.6 min
CONCLUSIONS
1. Mildly elevated biventricular filling pressures
2. Severe postcapillary pulmonary hypertension
3. Normal cardiac output
Physical Exam
Vital Signs/Labs
Vital Signs
Temp Pulse Resp BP Pulse Ox
97.9 F 51 17 100/62 97
04/14/25 07:49 04/14/25 07:49 04/14/25 07:49 04/14/25 07:49 04/14/25 07:49
04/13/25 04/14/25 04/15/25
06:59 06:59 06:59
Actual Weight 65.635 kg
04/14/25 05:19
04/14/25 05:19
Magnesium 2.0 mg/dl (1.6-2.3) 04/14/25 05:19
Triglycerides 405 mg/dl (10-149) H 04/12/25 08:55
LDL Cholesterol, Calc mg/dl 04/12/25 08:55
VLDL Cholesterol, Calc mg/dl (0-30) 04/12/25 08:55
HDL Cholesterol 62 mg/dl 04/12/25 08:55
Free T4 0.93 ng/dl (0.78-2.19) 04/12/25 08:55
04/13/25
05:05
[id number] Pept 442
LAB Results
04/11/25 04/12/25 04/12/25
21:30 08:55 10:32
Troponin I < 0.012 < 0.012 < 0.012
Physical Exam
Constitutional: No acute distress
EENT: Anicteric
Cardiovascular: Rhythm & rate is regular and Pedal edema is absent
Respiratory: Respiratory effort normal and Lungs clear to auscul.
GI: Soft
Neuro/Psych: Alert
Data Reviewed
-
Date of Service: April 14, 2025
[2025-04-14] MEDS: CYANOCOBALAMIN 1000 MCG IM (10:03)
[2025-04-14] MEDS: LASIX 20 MG IV (10:03)
[2025-04-14] MEDS: DILAUDID 0.5 MG IV ×4 (10:03→22:41)
--- NOTE | 2025-04-14 11:33 | CON.GI ---
Addendum entered and electronically signed by Faby Amin DO 04/14/25 16:14:
Patient seen and examined independently of BENTLEY. I agree with her note with my additions below
Bhavesh is a 45-year-old female with history of scleroderma with severe pulmonary hypertension followed at [facility]. Patient had an appendectomy for an appendicitis on March 23, 2025. She is back with the same pain she had preoperatively. She had no
lower abdominal pain but actually had right upper quadrant/epigastric into her neck sharp constant pain with associated nausea and has had 2 episodes of vomiting once on Saturday and on Saturday. She comes back after having a syncopal episode on
Saturday. Imaging was negative for a rib fracture and her pain is more epigastric and over the ribs. Pain is worse with eating and she chronically gets significant fullness and is even lost about 25 pounds over the past 3 months. Some NSAIDs after
recovery. As an outpatient does take Prilosec as she does get some reflux. Because of the pain she has had an extensive workup with both cardiology and surgery without a clear etiology. She underwent HIDA, MRI, CT angio. LFTs lipase were all
normal. On 04/13 she had a mild bili elevated indirect bilirubin but normal direct.
I did review her MRI done on 04/12/2025. She has a small hiatal hernia, no abnormal distention or wall thickening throughout the bowel. She does have a moderate amount of fecal material in the right colon.
# Epigastric right upper quadrant pain -etiology unclear
-- Patient is not on a PPI here in the hospital. She is on famotidine twice daily
-- Will start stimulating laxative in addition to the MiraLAX she already received to help her move her bowels better
-- Will proceed with endoscopy due to the significant pain and tenderness in the epigastric area. No prior EGD in the past.
-- Will also start treating her for suspected bacterial overgrowth in the setting of scleroderma. Patients with scleroderma often have severe GI dysmotility and develop bacterial overgrowth which can even lead to weight loss
Started Xifaxan 550 3 times daily
--N.p.o. after midnight
-- We discussed gastroparesis diet. No point in checking a gastric emptying scan inpatient while on narcotics and antiemetics
Original Note:
Consultation
-
Date/Time Consultation Requested: 04/14/25 1120
Date/Time Consultation Performed: 04/14/25 1130
Requesting Provider: Gilles Ortiz MD
Performing Provider: BENTLEY Cobos, Faby Amin DO
Reason for Consultation: abdominal pain
Medical History
Chief Complaint / HPI
History of Present Illness:
Pt is a 45yo with hx scleroderma with pulm HTN followed at [facility] on Opsynvi, endometriosis with multiple surgeries in past, recent appe 03/23 with now admission with abdominal pain. Prior to admission pt admits to onset of pain then was found lying
down with change in mental status. She was noted with complaints of RUQ with radiation to chest shoulder blade, jaw, and ear. Pain in 10/10 at worse and 4/10 during evaluation. Pain is worse with eating and fullness in stomach and better with
pain meds. She admits to some NSAID post surgery but less after recovery. She has been seen by cardiology and surgical team with extensive work up since admission without clear etiology with prior CT, US, CT angio, HCT, MRI, HIDA and cath as
noted. She has persistent normal WBC and LFT and lipase with only bili up to 1.9 on 04/13.
In review with patient she admits to similar pain with many years ago. She then began with pain prior to admission with appe. She also admits to wt loss of 20 lbs last 3-4 months as feeling of fullness with eating. She has some
chronic dysphagia with hx scleroderma. She did have vomiting some larger volume prior to admission and persistent nausea. Nausea has been improved during admission with Zofran. She was noted with constipation on initial CT but admits to daily
stools occasional mucous without bleeding. She did have stool after admission with suppository without change in pain. No hx EGD or colonoscopy in past. Family hx father and grandfather with colon CA. Grandmother and mother with IBS. Pt admits
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
04/11 CT Abd/pelvis W Iv Cont
IMPRESSION: Status post appendectomy. No evidence for abscess. Moderate amount of stool within the colon, suggesting a degree constipation.
Enlarged uterus, with at least one fibroid suggested in the fundal region.3 mm calcification within the left L4-5 neural foramen, as described above, stable from CT of March 23, 2025. Please correlate with any left sided radicular symptoms referable
to the L4-5 nerve root.
04/12 US limited abdomen
No acute pathology. Hepatic hemangiomas. Stable
04/12/25 CT Chest Angio W/wo Iv Contras
1. Small hiatal hernia.
2. Mild subsegmental atelectasis and scarring in the basilar segments of the lower lobes.
3. Small fat-containing right posterior diaphragmatic hernia.
04/12/25 HCT
No evidence of acute intracranial abnormality.
04/12/25 vascular US
RIGHT: No significant carotid plaque identified. Carotid velocity measurements are consistent with less than 50% internal carotid artery stenosis. Vertebral artery flow is antegrade.
LEFT: No significant carotid plaque identified. Carotid velocity measurements consistent with 50-69% internal carotid artery stenosis however these measurements were identified in an area of distal internal carotid artery tortuosity and could be
related to this. Vertebral artery flow is antegrade.
04/12/25 MR Abdomen W/o & W Contrast
1. Mild diffuse hepatic steatosis.
2. Mild hepatomegaly.
3. Multiple hepatic hemangiomas (largest 2.8 cm).
4. Mild gallbladder distention.
04/13/25 -- hida No scintigraphic evidence of cystic duct or common bile duct obstruction.
04/13/25 rib X ray
No radiographically demonstrable rib fracture.
No pleural effusion or pneumothorax
cath .
1. Mildly elevated biventricular filling pressures
2. Severe postcapillary pulmonary hypertension
3. Normal cardiac output
Past Medical History
Past Medical History: Other (pulm HTN, endometriosis, scleroderma, )
Past Surgical History: Appendectomy, Gynecological (multiple laproscopic surgeries for endometriosis) and Other (wisdom teeth extraction )
Social History
Tobacco: Non-Smoker
Alcohol: Occasional
Drug: None
Living: With Family (daughter and finacee)
Employment: Employed (dental )
Family History
Family History: Other ( father and grandfather with colon CA. Grandmother and mother with IBS.)
Allergies / Home Medications
Allergy/AdvReac Type Severity Reaction Status Date / Time
propoxyphene HCl (From Allergy Anaphylaxis Verified 03/22/25 22:04
Darvon)
�Medication �Instructions �Recorded
macitentan 10 mg-tadalafil 20 mg 1 tab PO HS 04/12/25
tablet (Opsynvi)
Review of Systems
-
History Source: Patient
Constitutional: Reports Weight Loss and Chills
EENT: Reports No Symptoms
Respiratory: Reports No Symptoms
Cardiac: Reports Chest Pain
Abdomen/GI: Reports Abdominal Pain (RUQ/epigastric ), Nausea, Vomiting and Constipated (on imaging denies symptoms )
: Reports No Symptoms
Musculoskeletal: Reports No Symptoms
Skin: Reports No Symptoms
Neurological: Reports Weakness
Endocrine: Reports No Symptoms
Hematologic/Lymphatic: Reports No Symptoms
Vital Signs
Temp Pulse Resp BP Pulse Ox
98.0 F 49 16 94/55 95
04/14/25 11:12 04/14/25 11:12 04/14/25 11:12 04/14/25 11:12 04/14/25 11:12
Physical Exam
Exam
General: Well Developed, Well Nourished and Other (some distress with pain )
HEENT: Normocephalic and Anicteric
Respiratory: Clear
Cardiac: Regular Rhythm
GI: Soft, Non Distended and Tender (epigastric/RUQ-- no pinpoint tenderness or pain over rib area)
Genito-urinary: No Costovertebral Tender
Musculoskeletal: Other (able to move out of bed without increase in pain )
Skin: Warm and Dry
Neuro: Awake and AO x 3
Psych: Calm
Results
WBC 3.3 10^3/uL (4.8-10.8) L 04/14/25 05:19
Hgb 10.9 g/dL (12.0-16.0) L 04/14/25 05:19
Hct 32.7 % (37.0-47.0) L 04/14/25 05:19
MCV 100.3 fL (81.0-99.0) H 04/14/25 05:19
Plt Count 199 10^3/uL (130-400) 04/14/25 05:19
Absolute Neuts (auto) 2.0 10^3/uL (1.4-6.5) 04/11/25 21:30
Sodium 137 mmol/L (135-145) 04/14/25 05:19
Potassium 4.0 mmol/L (3.5-5.1) 04/14/25 05:19
Chloride 113 mmol/L (98-107) H 04/14/25 05:19
Carbon Dioxide 23 mmol/L (22-30) 04/14/25 05:19
BUN 4 mg/dl (7-17) L 04/14/25 05:19
Creatinine 0.8 mg/dL (0.6-1.0) 04/14/25 05:19
Calcium 8.3 mg/dl (8.4-10.2) L 04/14/25 05:19
Total Bilirubin 1.3 mg/dl (0.2-1.3) 04/14/25 05:19
AST 20 U/L (14-36) 04/14/25 05:19
ALT < 10 U/L (0-35) 04/14/25 05:19
Alkaline Phosphatase < 20 U/L (38-126) L 04/14/25 05:19
Lipase 206 U/L (23-300) 04/11/25 21:30
Diagnostic Image Results:
04/11 CT Abd/pelvis W Iv Cont
IMPRESSION: Status post appendectomy. No evidence for abscess. Moderate amount of stool within the colon, suggesting a degree constipation.
Enlarged uterus, with at least one fibroid suggested in the fundal region.3 mm calcification within the left L4-5 neural foramen, as described above, stable from CT of March 23, 2025. Please correlate with any left sided radicular symptoms referable
to the L4-5 nerve root.
04/12 US limited abdomen
No acute pathology. Hepatic hemangiomas. Stable
04/12/25 CT Chest Angio W/wo Iv Contras
1. Small hiatal hernia.
2. Mild subsegmental atelectasis and scarring in the basilar segments of the lower lobes.
3. Small fat-containing right posterior diaphragmatic hernia.
04/12/25 HCT
No evidence of acute intracranial abnormality.
04/12/25 vascular US
RIGHT: No significant carotid plaque identified. Carotid velocity measurements are consistent with less than 50% internal carotid artery stenosis. Vertebral artery flow is antegrade.
LEFT: No significant carotid plaque identified. Carotid velocity measurements consistent with 50-69% internal carotid artery stenosis however these measurements were identified in an area of distal internal carotid artery tortuosity and could be
related to this. Vertebral artery flow is antegrade.
04/12/25 MR Abdomen W/o & W Contrast
1. Mild diffuse hepatic steatosis.
2. Mild hepatomegaly.
3. Multiple hepatic hemangiomas (largest 2.8 cm).
4. Mild gallbladder distention.
04/13/25 -- hida No scintigraphic evidence of cystic duct or common bile duct obstruction.
04/13/25 rib X ray
No radiographically demonstrable rib fracture.
No pleural effusion or pneumothorax
cath .
1. Mildly elevated biventricular filling pressures
2. Severe postcapillary pulmonary hypertension
3. Normal cardiac output
Prior GI Procedures:
EGD: none
Colonoscopy: none
Assessment / Plan
-
Pt is a 45yo with hx scleroderma with pulm HTN followed at [facility] on Opsynvi, endometriosis with multiple surgeries in past, recent appe 03/23 with now admission with abdominal pain. Prior to admission pt admits to onset of pain then was found lying
down with change in mental status. She was noted with complaints of RUQ with radiation to chest shoulder blade, jaw, and ear. Pain in 10/10 at worse and 4/10 during evaluation. Pain is worse with eating and fullness in stomach and better with
pain meds. She admits to some NSAID post surgery but less after recovery. She has been seen by cardiology and surgical team with extensive work up since admission without clear etiology. She has persistent normal WBC and LFT and lipase with
only bili up to 1.9 on 04/13. Pt also noted with wt loss, fullness with eating, nausea. Minimal NSAID use. Imaging with noted constipation, hepatic hemangioma, HH, mild GB distention on MRI with neg HIDA and known pulm HTN on cath No hx EGD or
colonoscopy in past. Family hx father and grandfather with colon CA. Grandmother and mother with IBS. 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
-RUQ/epigastric pain with radiation to neck/check/shoulder
-loss of consciousness prior to admission
-nausea/early satiety
-hepatic hemangioma
-constipation
-mild GB distention on MRI
-scleroderma with Pulm HTN on Opsynvi
-endometriosis with multiple surgeries in past
-recent appe
PLAN:
etiology of abdominal pain unclear extensive workup as noted -- PUD, gastritis, biliary but normal LFT's, scleroderma related gastroparesis/pseudoobstruction/SIBO vs other
symptoms worse with eating with early satiety and wt loss
occasional NSAID use
s/p cardiology and surgical eval
will review for EGD/ gastric emptying scan vs Xifaxan course for possible SIBO with dr. Amin
pt noted moderate stool in colon but admits to BM after suppository without change in pain
cont pain management per medical team
Zofran as needed
-
-
Thank you for consultation and allowing me to participate in the patient's care. Please call the facility operations manager GI physician during the after hours with any questions or concerns.
--- NOTE | 2025-04-14 12:27 | W.PN.HOSP.TC ---
Today's Communication/Plan
-
GI consult
Attempt Lasix
Assessment / Plan
Assessment / Plan
45yo F with PMX of scleroderma, pulmonary HTN, Hx of syncope 2/2 PAH, recent appendectomy 3 weeks ago came after episode of LOC, found by his upstairs, initially unresponsive, then confused, improved after arrival to ED. ALso patient
immediately started to c/o of chest pain radiating to R jaw, associated with RUQ abd pain similar to one that brought her to ED for appendicitis. With negative abd w/u - possibility that pain caused by decompensated pulmonary HTN. RHC by card on
04/13/25
A/P:
#Syncope
#Pulmonary HTN
recurrent
Previously thought to be 2/2 PAH, followed by , referred to [facility] for PAH mgmt
Trops WNL, no acute ACS signs on EKG
Tele without clinically significant arrhythmia
Cardio consult
Head CT: no acute abnormality
Echo: Compared to prior echocardiogram in October 2023, PASP has increased from 28 mmHg to 63 mmHg
Carotid US neg for clinically significant stenosis
Borderline BP - cannot exclude episode of hypotension and dehydration (with elevated Cr), check orthostatic VS
CTA chest without dissection or VTE
DDimer undetectable
Cardio did RHC on 04/13/25 with Severe postcapillary pulmonary hypertension, reviewed with Christopher by card - no change in mgmt, attempt trial of inpatient LAsix if pressures causing liver pain due congestion.
#RUQ abd pain
#Stable 2.7cm R liver lobe hemangioma
#8m lesion in R liver lobe, hemangioma
#small hiatal hernia
#small uncomplicated R diaphragmatic hernia
#Hepatic steatosis
#4.3 mm cyst located along the inferolateral margin of the spleen
GenSx Eval
started on Famotidine on admission
pain mgmt, zofran PRN
MRCP and HIDA neg for acute hepatobiliary pathology, gen Sx signed off
no retroperitoneal lymphadenopathy,
moderate amount of feces in ascending colon - constipation causing pain? - Miralax
GI consult
#Elevated cr, borderline TON
resolved on IVF
#Recurrent mild leukopenia
#Recurrent mild anemia
follow CBC
outpatient w/u with PCP advised
#Indirect bilirubinemia
LDH and retics WNL - Gilbert?
blood parasite screen neg
#Known pulmonary nodules, stable
#Scleroderma
#DJD
follow with established specialists and PCP
cont home meds
#disc desiccation at L3/L4
mild
PT/OT
#Uterine fibroids
known to patient
follow with [facility] FIELD CASE MANAGER outpatient
#Constipation
laxative
DVT ppx SCDs
Full code
I have spent at least 58min reviewing chart, test results, communication with consultants and providing direct patient care
Anticipated Discharge: 24 - 48 hours
Subjective/Interval History
-
Date of Service: April 14, 2025
Objective Data
-
Labs:
Laboratory Results
04/14/25
05:19
WBC 3.3 L
Hgb 10.9 L
Hct 32.7 L
Plt Count 199
Sodium 137
Potassium 4.0
Chloride 113 H
Carbon Dioxide 23
BUN 4 L
Creatinine 0.8
Glucose 86
Calcium 8.3 L
Total Bilirubin 1.3
AST 20
ALT < 10
Alkaline Phosphatase < 20 L
Vital Signs:
Vital Signs
Temp Pulse Resp BP Pulse Ox
98.0 F 49 16 94/55 95
04/14/25 11:12 04/14/25 11:12 04/14/25 11:12 04/14/25 11:12 04/14/25 11:12
I&O
04/13/25 04/14/25 04/15/25
06:59 06:59 06:59
Intake Total 1020 / 1020 480 / 480
Balance 1020 / 1020 480 / 480
Review of Systems
-
History Source: Patient
All other systems: Reviewed and negative
Abdomen/GI: Reports Abdominal Pain (RUQ)
Physical Exam
-
HEENT: Normocephalic
Respiratory: Clear to Auscultation
Cardiac: Regular Rhythm
GI: Soft, Nondistended and Tender (RUQ)
Neuro: Awake, Alert, Oriented and AO x 3
Psych: Calm
[2025-04-14] MEDS: MIRALAX 17 GRAMS PO (12:59)
[2025-04-14] MEDS: DULCOLAX 10 MG PO (16:54)
[2025-04-14] MEDS: XIFAXAN 550 MG PO ×2 (16:54→21:37)
[2025-04-14] MEDS: KCL 20 MEQ PO (21:38)
[2025-04-14] MEDS: NON-FORMULARY ITEM 1 TABLET PO (21:39)
[2025-04-15 03:35] VITALS: BP 106/66
[2025-04-15] MEDS: DILAUDID 0.5 MG IV ×3 (03:40→14:06)
[2025-04-15 07:00] VITALS: BP 100/60
[2025-04-15] MEDS: XIFAXAN 550 MG PO ×2 (07:44→15:05)
[2025-04-15] MEDS: NSS (PRESERVATIVE FREE) 8 ML IV (07:44)
[2025-04-15] MEDS: MIRALAX 17 GRAMS PO (07:44)
[2025-04-15] MEDS: PEPCID 20 MG IV (07:45)
[2025-04-15] MEDS: KCL 20 MEQ PO (07:45)
[2025-04-15] MEDS: CYANOCOBALAMIN 1000 MCG IM (07:45)
[2025-04-15] MEDS: LASIX 20 MG IV (08:02)
[2025-04-15 08:42] LABS: Blood Urea Nitrogen 6 mg/dl (7-17); Calcium 8.6 mg/dl (8.4-10.2); Carbon Dioxide 24 mmol/L (22-30); Chloride 108 mmol/L (98-107); Estimated Creatinine Clearance 72 ml/min; Glucose 84 mg/dl (70-99); Potassium 4.4 mmol/L (3.5-5.1); Sodium 135 mmol/L (135-145); eGFR > 60.00
--- NOTE | 2025-04-15 08:43 | W.PN.CD ---
Today's Communication / Plan
-
Last lasix dose
no change in PAH meds
F/u with Dr Brantley in office 1-3 wks post d/c
We will sign off please call with questions
Impression / Plan
-
LOC/syncope:
-etiology unclear
-tele is still fine, asymptomatic mild sinus bradycardia is not concerning
- Echo with good LV/RV/valves but pulmonary HTN has worsened. PASP now 63 mmHg.
- PASP 110 mmHg by echo here in 06/2022 but NORMAL at [facility] in Oct 2024
- No pulm embolus on CTA here
- It is possible that the abdominal issues triggered a vasovagal event
- Can consider 14 day monitor as outpatient
PAH:
-continue Opsynvi and following with [facility]
-update echo as above
- Echo with good LV/RV/valves but pulmonary HTN has worsened. PASP now 63 mmHg.
- PASP 110 mmHg by echo here in 06/2022 but NORMAL at [facility] in Oct 2024
- We proceed to RHC on 04/14/[address] Brantley at [facility]. He is aware that her echo's at times UNDERESTIMATE her PASP
- I reviewed the RHC date with Dr. Brantley last evening and he SUGGESTS NO CHANGE IN pulm HTN MED.
- last lasix dose today
- interval possible improvement in pain
- EGD today
Chest/neck/abdominal pain:
-similar to pain that brought her in with appendicitis (recent appendectomy). Abdominal pain worse to palpation.
- EGD today
-surgery is consulted => plan was for HIDA
-pain meds per primary
-trop and EKG unremarkable so far, checking echo. Denies CP with exertion. No dissection or PE on CT scan.
-MRI:
1. Mild diffuse hepatic steatosis.
2. Mild hepatomegaly.
3. Multiple hepatic hemangiomas (largest 2.8 cm).
4. Mild gallbladder distention.
Subjective: Pain persists, mostly RUQ
RHC 04/13/2025
HEMODYNAMIC DATA
SBP 119/63 (mean 85) mmHg
RA 12 mmHg
RV 75/7 (EDP 15) mmHg
PA 74/23 (mean 45) mmHg
PCWP 16 mmHg
SaO2 96.0%
SvO2 69.4%
Hb 12.2 g/dL
CO/CI 4.71/2.83 L/min/m2
SVR 1240 dsc*-5
PVR 6.2 Wood units
RADIATION: dose 3.24 mGy; DAP 0.45 Gy*cm2; fluoroscopy time 0.6 min
CONCLUSIONS
1. Mildly elevated biventricular filling pressures
2. Severe postcapillary pulmonary hypertension
3. Normal cardiac output
Physical Exam
Vital Signs/Labs
Vital Signs
Temp Pulse Resp BP Pulse Ox
97.9 F 47 16 106/66 95
04/15/25 03:35 04/15/25 03:35 04/15/25 03:35 04/15/25 03:35 04/15/25 03:35
04/14/25 05:19
04/15/25 07:15
Magnesium 2.0 mg/dl (1.6-2.3) 04/14/25 05:19
Triglycerides 405 mg/dl (10-149) H 04/12/25 08:55
LDL Cholesterol, Calc mg/dl 04/12/25 08:55
VLDL Cholesterol, Calc mg/dl (0-30) 04/12/25 08:55
HDL Cholesterol 62 mg/dl 04/12/25 08:55
Free T4 0.93 ng/dl (0.78-2.19) 04/12/25 08:55
04/13/25
05:05
Nzu-[id number]-Dagbkolujvh Pept 442
LAB Results
04/12/25 04/12/25
08:55 10:32
Troponin I < 0.012 < 0.012
Physical Exam
Constitutional: No acute distress
EENT: Anicteric
Cardiovascular: Rhythm & rate is regular and Pedal edema is absent
Respiratory: Respiratory effort normal and Lungs clear to auscul.
GI: Soft
Neuro/Psych: AO x 3
Data Reviewed
-
Date of Service: April 15, 2025
Medical Decision Making: Reviewed Test Results
EKG: Tracing Personally Visualized and interpreted (sr)
Echo: Report Reviewed by me
[2025-04-15] MEDS: CYMBALTA DELAYED RELEASE 20 MG PO (10:04)
[2025-04-15] MEDS: PROTONIX 40 MG PO (10:04)
--- NOTE | 2025-04-15 10:12 | W.PN.HOSP.TC ---
Today's Communication/Plan
-
dc
Assessment / Plan
Assessment / Plan
45yo F with PMX of scleroderma, pulmonary HTN, Hx of syncope 2/2 PAH, recent appendectomy 3 weeks ago came after episode of LOC, found by his upstairs, initially unresponsive, then confused, improved after arrival to ED. ALso patient
immediately started to c/o of chest pain radiating to R jaw, associated with RUQ abd pain similar to one that brought her to ED for appendicitis. With negative abd w/u - possibility that pain caused by decompensated pulmonary HTN. RHC by andrae on
04/13/25
A/P:
#Syncope
#Pulmonary HTN
recurrent
Previously thought to be 2/2 PAH, followed by , referred to [facility] for PAH mgmt
Trops WNL, no acute ACS signs on EKG
Tele without clinically significant arrhythmia
Cardio consult
Head CT: no acute abnormality
Echo: Compared to prior echocardiogram in October 2023, PASP has increased from 28 mmHg to 63 mmHg
Carotid US neg for clinically significant stenosis
Borderline BP - cannot exclude episode of hypotension and dehydration (with elevated Cr), check orthostatic VS
CTA chest without dissection or VTE, no pleural effusion, no pericadial effusions, stable pulm nodule, small diaphragmatic hernia on R (maybe reason for intermittent pain?)
DDimer undetectable
Cardio did RHC on 04/13/25 with Severe postcapillary pulmonary hypertension, reviewed with [facility] by andrae - no change in mgmt, attempt trial of inpatient LAsix if pressures causing liver pain due congestion. Close outpatient f/u with [facility]
pulmonary HTN specialists advised
#RUQ abd pain
#Stable 2.7cm R liver lobe hemangioma
#8m lesion in R liver lobe, hemangioma
#small hiatal hernia
#small uncomplicated R diaphragmatic hernia
#Hepatic steatosis
#4.3 mm cyst located along the inferolateral margin of the spleen
GenSx Eval
started on Famotidine on admission
pain mgmt, zofran PRN
MRCP and HIDA neg for acute hepatobiliary pathology, gen Sx signed off
no retroperitoneal lymphadenopathy,
moderate amount of feces in ascending colon - constipation causing pain? - Miralax
GI consult: s/p EGD on 04/15/25 - erosions - ppi twice daily x 2wks, then once daily. gastroparesis diet and Duloxetine to be uptitrated by PCP. Rifaximine for bacterial overgrowth (as patients with scleroderma prompt to develop it)
#Elevated cr, borderline TON
resolved on IVF
#Recurrent mild leukopenia
#Recurrent mild anemia
follow CBC
outpatient w/u with l tacker as mother has Hx of thalassemia minor
No signs of hemolysis at this time
#Indirect bilirubinemia
LDH and retics WNL - Gilbert?
blood parasite screen neg
#Known pulmonary nodules, stable
#Scleroderma
#DJD
follow with established specialists and PCP
cont home meds
#disc desiccation at L3/L4
mild
PT/OT
#Uterine fibroids
known to patient
follow with [facility] outpatient
#Constipation
laxative
DVT ppx SCDs
Full code
I have spent at least 38min reviewing chart, test results, communication with consultants and providing direct patient care
Anticipated Discharge: Today
Subjective/Interval History
-
Date of Service: April 15, 2025
Objective Data
-
Labs:
Laboratory Results
04/15/25
07:15
Sodium 135
Potassium 4.4
Chloride 108 H
Carbon Dioxide 24
BUN 6 L
Creatinine 0.9
Glucose 84
Calcium 8.6
Vital Signs:
Vital Signs
Temp Pulse Resp BP Pulse Ox
97.8 F 52 16 100/60 95
04/15/25 07:00 04/15/25 07:00 04/15/25 07:00 04/15/25 07:00 04/15/25 07:00
I&O
04/14/25 04/15/25 04/16/25
06:59 06:59 06:59
Intake Total 480 / 480 1020 / 1020
Balance 480 / 480 1020 / 1020
Review of Systems
-
History Source: Patient
All other systems: Reviewed and negative
Abdomen/GI: Reports Abdominal Pain
Physical Exam
-
General: No Apparent Distress
HEENT: Normocephalic
Respiratory: Clear to Auscultation
Cardiac: Regular Rhythm
GI: Soft, Nontender and Nondistended
Musculoskeletal: No Clubbing, No Cyanosis and No Edema
Neuro: Awake, Alert, Oriented and AO x 3
Psych: Calm
[2025-04-15 11:00] VITALS: BP 101/70
[2025-04-15] MEDS: ROXICODONE 5 MG PO (11:15)
--- NOTE | 2025-04-15 12:49 | W.DCSUMMARY ---
Discharge Summary
Discharge Data
Date of Admission: 04/15/25
Date of Discharge: 04/15/25
-
Pending Results: Yes
Additional Pending Results:
HIV
Hospital Course
45yo F with PMX of scleroderma, pulmonary HTN, Hx of syncope 2/2 PAH, recent appendectomy 3 weeks ago came after episode of LOC, found by his upstairs, initially unresponsive, then confused, improved after arrival to ED. ALso patient
immediately started to c/o of chest pain radiating to R jaw, associated with RUQ abd pain similar to one that brought her to ED for appendicitis. With negative abd w/u - possibility that pain caused by decompensated pulmonary HTN. RHC by card on
04/13/25 - with Severe postcapillary pulmonary hypertension, reviewed with [facility] by andrae - no change in mgmt, attempt trial of inpatient LAsix if pressures causing liver pain due congestion. Close outpatient f/u with [facility] pulmonary HTN specialists
advised. Extensive w/u with chest CT, abd CT. EGD, MRCP, HiIDA and evaluation with GI and GenSx did not show overt acute pathology. Musculosceletal component cannot be ruled out. ALso bacterial overgrowth concern and erosions on EGD. Patient
hemodynamically stable, tolerated food. Advised close follo up with established pulmonary HTN specialist. Medcially stable to be d/c home as BW on the day of d/c showed improvement in anemia and leukocytopenia
I have spent at least 38min reviewing chart, test results, communication with consultants and providing direct patient care
Patient was managed for:
#Syncope
#Pulmonary HTN
#RUQ abd pain
#Stable 2.7cm R liver lobe hemangioma
#8m lesion in R liver lobe, hemangioma
#small hiatal hernia
#small uncomplicated R diaphragmatic hernia
#Hepatic steatosis
#4.3 mm cyst located along the inferolateral margin of the spleen
#Elevated cr, borderline TON
resolved on IVF
#Recurrent mild leukopenia
#Recurrent mild anemia
#Family Hx of Thalassemia
#B12 deficiency
#Indirect bilirubinemia
#Known pulmonary nodules, stable
#Scleroderma
#DJD
#disc desiccation at L3/L4
#Uterine fibroids
#Constipation
Discharge Plan
-
Patient Disposition: Home (Routine Discharge)
Discharge Diagnosis/Procedures: abdominal pain radiating to R chest
Diet: Low Residue
Stand Alone Forms: DC Instructions- Cath/EP Lab
Referrals:
Annabelle Brantley [Other] - in less than 1 week
Dannie yLles DO [Active, Hematology / Oncology] - in two to four weeks
Referral Note: hx of recurrent leukopenia and anemia
Lisha Geller CRNP [Family Provider, Family Practice]
Prescriptions:
New
cyanocobalamin (vitamin B-12) 1,000 mcg capsule
1,000 mcg PO DAILY Qty: 30 0RF
pantoprazole 40 mg Tablet,Delayed Release (Dr/Ec)
40 mg PO DIRECTED Qty: 90 0RF
Rx Instructions:
BID for 14 days, then daily
duloxetine 20 mg Capsule,Delayed Release(Dr/Ec)
20 mg PO DAILY Qty: 30 0RF
oxycodone 5 mg Tablet
5 mg PO Q4HPRN PRN (Reason: pain) Qty: 12 0RF
Xifaxan 550 mg Tablet
550 mg PO TID Qty: 90 0RF
Continued
Opsynvi 10-20 mg tablet
1 tab PO HS
Discharge Orders:
Discharge Patient (As Directed); Ordered 04/15/25
Ordered By: Gilles Ortiz
Discharge Date and Time
Print Language: TOGOLESE
[2025-04-15 13:44] LABS: ALT (SGPT) 13 U/L (0-35); AST (SGOT) 22 U/L (14-36); Albumin 4.4 g/dl (3.5-5.0); Alkaline Phosphatase < 20 U/L (38-126); Blood Urea Nitrogen 5 mg/dl (7-17); Calcium 9.3 mg/dl (8.4-10.2); Carbon Dioxide 22 mmol/L (22-30); Chloride 106 mmol/L (98-107); Estimated Creatinine Clearance 72 ml/min; Glucose 114 mg/dl (70-99); Hematocrit 40.1 % (37.0-47.0); Hemoglobin 13.7 g/dL (12.0-16.0); Mean Corp Hgb Conc. 34.2 g/dL (33.0-37.0); Mean Corpuscular Volume 97.6 fL (81.0-99.0); Nucleated Red Blood Cells % 0 %; Platelet Count 232 10^3/uL (130-400); Potassium 4.6 mmol/L (3.5-5.1); Red Cell Dist. Width 13.1 % (11.5-14.5); Sodium 135 mmol/L (135-145); Total Protein 6.8 g/dl (6.3-8.2); eGFR > 60.00
--- NOTE | 2025-04-15 14:13 | CM ---
Addendum entered by Odalis Barnhart RN 04/15/25 14:18:
Pt notified she was changed to inpatient.
Original Note:
MD entered order for discharge.
She said at discharge her mom Odette will drive her home.
Offered VN she declined.
PLAN Home no needs
[2025-04-15 14:50] VITALS: BP 99/64
--- NOTE | 2025-04-15 15:50 | PTCARENOTE ---
Addendum entered by Elidia Quick RN 04/15/25 16:04:
Left a voice mail for patient informing her of DR. Amin's recommendation.
Original Note:
Rn appeals coordinator- Patient cleared for discharge and while reviewing medications with patient she confirmed that she had received a notification from [employer] (P) that the medication Xifaxan needed a preauthorization from insurance company to fill
medication. Riley texted Dr Faith, who referred the problem to Dr. Amin, who then DC the medication. Patient called on cell to inform her that she should not get medication.
== END 2025-04-15 15:33 | disposition home or self-care (01) | DRG 287 ==
LOC: 3 WEST ACU 08:15
PROVIDERS: Internal Medicine Cardiovascular Disease; Nurse Practitioner; Nurse Practitioner Gerontology; Physician Assistant; Student in an Organized Health Care Education/Training Program; ADMITTING PHYSICIAN Internal Medicine; ATTENDING PHYSICIAN Internal Medicine; CONSULT PHYSICIAN Internal Medicine; CONSULT PHYSICIAN Student in an Organized Health Care Education/Training Program; CONSULT PHYSICIAN Surgery; EMERGENCY PHYSICIAN Emergency Medicine; FAMILY PHYSICIAN Nurse Practitioner
PROC: 4A023N6 Measurement of Cardiac Sampling and Pressure, Right Heart, Percutaneous Approach (ICD-10-PCS; 2025-04-13)
PROC: 0DB78ZX Excision of Stomach, Pylorus, Via Natural or Artificial Opening Endoscopic, Diagnostic (ICD-10-PCS; 2025-04-15)
PROC: 0DB98ZX Excision of Duodenum, Via Natural or Artificial Opening Endoscopic, Diagnostic (ICD-10-PCS; 2025-04-15)
DX: I27.20 Pulmonary hypertension, unspecified (principal); N17.9 Acute kidney failure, unspecified; J98.11 Atelectasis; K29.70 Gastritis, unspecified, without bleeding; K21.9 Gastro-esophageal reflux disease without esophagitis; M06.9 Rheumatoid arthritis, unspecified; M34.9 Systemic sclerosis, unspecified; K58.8 Other irritable bowel syndrome; N80.9 Endometriosis, unspecified; D18.03 Hemangioma of intra-abdominal structures; K82.8 Other specified diseases of gallbladder; K76.0 Fatty (change of) liver, not elsewhere classified; R16.0 Hepatomegaly, not elsewhere classified; K44.9 Diaphragmatic hernia without obstruction or gangrene; M19.90 Unspecified osteoarthritis, unspecified site; K59.00 Constipation, unspecified; D25.9 Leiomyoma of uterus, unspecified; E53.8 Deficiency of other specified B group vitamins; E78.1 Pure hyperglyceridemia; R13.10 Dysphagia, unspecified; D72.819 Decreased white blood cell count, unspecified; D64.9 Anemia, unspecified; Z87.891 Personal history of nicotine dependence; Z88.8 Allergy status to other drugs, medicaments and biological substances; Z80.0 Family history of malignant neoplasm of digestive organs; Z83.2 Family history of diseases of the blood and blood-forming organs and certain disorders involving the immune mechanism
CPT/HCPCS: 70450; 71110; 71275; 74177; 74183; 76705; 78226; 80048; 80053; 80061; 80076; 81003; 82248; 82607; 82746; 83615; 83690; 83721; 83735; 83880; 84439; 84443; 84484; 84703; 85025; 85027; 85045; 85379; 87015; 87207; 87389; 88305; 88342; 93005; 93306; 93451; 93880; 96361; 96374; 96375; 99152; 99153; 99285; A9537; A9575; C1894; Q9967